=== PATIENT | male | born 1945 | race Caucasian/White ===

== ENCOUNTER 2016-08-21 09:58 | Inpatient (IN) | payer OTHER ==
--- NOTE | 2016-08-21 10:16 | CPEKG ---
Heart Rate: 70 RR Interval: 857 P-R Interval: 184 QRSD Interval: 86 QT Interval: 372 QTC Interval: 402 P Havelock: 58 QRS Havelock: -8 T Wave Havelock: 55 EKG Severity - NORMAL ECG - EKG Impression: SINUS RHYTHM Electronically Signed By: George Sher 21-Aug-2016 15:04:56
[2016-08-21 10:41] LABS: % IMMATURE GRANULYOCYTES 0.4 % (0.0-1.1); ABSOLUTE IMMATURE GRANULOCYTES 0.02 10^3/uL (0.00-0.10); ADD DIFF? NO; ADD MORPH? NO; ADD SCAN? NO; ATYPICAL LYMPHOCYTE FLAG 80 (0-99); FRAGMENT RBC FLAG 0 (0-99); HEMOGLOBIN 16.2 g/dL (13.7-17.5); LEFT SHIFT FLG 10 (0-99); LIPEMIA HEMOLYSIS FLAG 90 (0-99); MEAN CELL HEMOGLOBIN 31.3 pg (27.9-34.1); MEAN CELL HEMOGLOBIN CONCENTR. 33.8 g/dL (32.4-36.7); MEAN CELL VOLUME 92.8 fL (81.5-99.8); MEAN PLATELET VOLUME 10.8 fL (8.7-11.7); PLATELET CLUMPS FLAG 0 (0-99); PLATELET COUNT 162 10^3/uL (150-400); RED BLOOD CELL COUNT 5.17 10^6/uL (4.40-6.38); RED CELL DISTRIBUTION WIDTH 12.6 % (11.5-15.2)
[2016-08-21 11:19] LABS: ANION GAP 10 mEq/L (8-16); CALCIUM 8.9 mg/dL (8.5-10.4); CARBON DIOXIDE 27 mEq/l (22-31); CHLORIDE 101 mEq/L (97-110); CREATININE 1.1 mg/dL (0.7-1.3); GLOMERULAR FILTRATION RATE > 60; GLUCOSE 95 mg/dL (70-100); POTASSIUM 4.3 mEq/L (3.5-5.2); SODIUM 138 mEq/L (134-144)
[2016-08-21 11:30] LABS: TROPONIN I 0.024 ng/mL (0-0.034)
[2016-08-21 11:42] LABS: ALBUMIN 3.6 g/dL (3.5-5.0); BILIRUBIN,TOTAL 0.7 mg/dL (0.1-1.4); BILIRUBIN-CONJUGATED 0.3 mg/dL (0.0-0.5); BILIRUBIN-UNCONJUGATED 0.4 mg/dL (0.0-1.1); TOTAL PROTEIN 6.9 g/dL (6.3-8.2)
--- NOTE | 2016-08-21 11:44 | DX ---
Chest, AP and Lateral August 21, 2016 History: Dyspnea. Weakness. Findings: Heart size is within normal limits. Mild peribronchial wall thickening. Small area of opaci fication is seen at the right lung base. No other evidence for airspace consolidation. Emphysematous configuration to the chest. No evidence for pleural effusion or pneumothorax. Mild degenerative carbajal e is seen in both shoulders. Impression: Mild underlying bronchitis. Small focal area of atelectasis or infiltrate in the right slime ng base.
[2016-08-21] MEDS ORDERED: AZITHROMYCIN 250 MG TAB PO ONE (11:57)
--- NOTE | 2016-08-21 12:08 | EDPHY ---
H & P Stated Complaint: Abd pain, weakness, diarrhea, loss of appetite Time Seen by Provider: 08/21/16 10:12 HPI/ROS: Chief complaint: Diarrhea, weakness History of present illness: This is a 71-year-old male who presents to the emergency department for evaluation of diarrhea and weakness. Patient reports the onset of symptoms over the last day. Symptoms began when he was traveling from [place] to [place] with his son by private vehicle. He reports multiple episodes of diarrhea described as watery, nonbloody, no mucus. He states he is going to the bathroom every 15 minutes. He has had associated weakness. Patient also initially had a fever which has resolved. His son was sick with similar symptoms. He denies other precipitating factors. He denies alleviating factors. He denies other associated signs or symptoms. No actual abdominal pain. No nausea or vomiting. No urinary symptoms. No cold symptoms. Review of systems: A 10 point review of systems was obtained and other than described above was negative - Personal History Current Tetanus/Diphtheria Vaccine: No Current Tetanus Diphtheria and Acellular Pertussis (TDAP): No - Medical/Surgical History Hx Asthma: No Hx Chronic Respiratory Disease: No Hx Diabetes: No Hx Cardiac Disease: No Hx Renal Disease: No Hx Cirrhosis: No Hx Alcoholism: No Hx HIV/AIDS: No Hx Splenectomy or Spleen Trauma: No Other PMH: Glaucoma - Social History Smoking Status: Former smoker - Physical Exam Exam: General Appearance: Alert, nontoxic. Eyes: Pupils equal and round no pallor or injection. ENT, Mouth: Mucous membranes moist. Respiratory: There are no retractions, lungs are clear to auscultation. Cardiovascular: Regular rate and rhythm. Gastrointestinal: Bowel sounds normal. Abdomen soft, nondistended, nontender to palpation. Neurological: Alert and oriented x4. Strength and sensation intact and symmetrical. Skin: Warm and dry, no rashes. Musculoskeletal: Neck is supple non tender. Extremities are symmetrical, full range of motion. Psychiatric: Patient is oriented X 3, there is no agitation. Constitutional: Initial Vital Signs Temperature (C) 36.7 C 08/21/16 10:10 Heart Rate 73 08/21/16 10:10 Respiratory Rate 16 08/21/16 10:10 Blood Pressure 134/73 H 08/21/16 10:10 O2 Sat (%) 83 L 08/21/16 10:10 O2 Delivery Mode Nasal Cannula O2 (L/minute) 2 Allergies/Adverse Reactions: No Known Allergies Allergy (Unverified 08/21/16 10:13) Home Medications: Medication Instructions Recorded Daily Vit Formula + Iron Tab 08/21/16 Fish Oil 08/21/16 NIACIN 08/21/16 Medical Decision Making ED Course/Re-evaluation: Patient discussed with my secondary supervising physician Dr. George Sher. Patient presents to the emergency department for diarrhea and weakness. On presentation he is nontoxic. Vital signs are concerning that he had a pulse oximetry 83% on good waveform. Physical exam is unremarkable including a benign abdominal exam. Baseline blood studies are unremarkable. EKG is unremarkable. Chest x-ray is concerning for bronchitis and developing pneumonia. Given concern for pneumonia on chest x-ray and pulse oximetry he will be admitted to the hospital for further evaluation and care. He is started on Rocephin and azithromycin. Stool studies have been ordered for the diarrhea and are pending at time of dictation. The plan has been discussed with the patient and his family and they voiced understanding and agreement with it. Differential Diagnosis: Included but not limited to gastroenteritis, colitis, biliary tract disease, panic high electrolyte disturbances - Data Points Laboratory Results: Laboratory Results 08/21/16 10:15 08/21/16 10:15 08/21/16 08/21/16 08/21/16 11:45 10:25 10:15 WBC 5.47 10^3/uL (3.80-9.50) RBC 5.17 10^6/uL (4.40-6.38) Hgb 16.2 g/dL (13.7-17.5) Hct 48.0 % (40.0-51.0) MCV 92.8 fL (81.5-99.8) MCH 31.3 pg (27.9-34.1) MCHC 33.8 g/dL (32.4-36.7) RDW 12.6 % (11.5-15.2) Plt Count 162 10^3/uL (150-400) MPV 10.8 fL (8.7-11.7) Neut % (Auto) 64.1 % (39.3-74.2) Lymph % (Auto) 19.0 % (15.0-45.0) Graves % (Auto) 15.9 H % (4.5-13.0) Eos % (Auto) 0.2 L % (0.6-7.6) Baso % (Auto) 0.4 % (0.3-1.7) Nucleat RBC Rel Count 0.0 % (0.0-0.2) Absolute Neuts (auto) 3.51 10^3/uL (1.70-6.50) Absolute Lymphs (auto) 1.04 10^3/uL (1.00-3.00) Absolute Monos (auto) 0.87 H 10^3/uL (0.30-0.80) Absolute Eos (auto) 0.01 L 10^3/uL (0.03-0.40) Absolute Basos (auto) 0.02 10^3/uL (0.02-0.10) Absolute Nucleated RBC 0.00 10^3/uL (0-0.01) Immature Gran % 0.4 % (0.0-1.1) Immature Gran # 0.02 10^3/uL (0.00-0.10) VBG Lactic Acid 1.0 mmol/L (0.7-2.1) Sodium 138 mEq/L (134-144) Potassium 4.3 mEq/L (3.5-5.2) Chloride 101 mEq/L (97-110) Carbon Dioxide 27 mEq/l (22-31) Anion Gap 10 mEq/L (8-16) BUN 21 mg/dL (7-23) Creatinine 1.1 mg/dL (0.7-1.3) Estimated GFR > 60 Glucose 95 mg/dL (70-100) Calcium 8.9 mg/dL (8.5-10.4) Total Bilirubin 0.7 mg/dL (0.1-1.4) Conjugated Bilirubin 0.3 mg/dL (0.0-0.5) Unconjugated Bilirubin 0.4 mg/dL (0.0-1.1) AST 59 IU/L (17-59) ALT 45 IU/L (21-72) Alkaline Phosphatase 76 IU/L (38-126) Troponin I 0.024 ng/mL (0-0.034) Total Protein 6.9 g/dL (6.3-8.2) Albumin 3.6 g/dL (3.5-5.0) Lipase 261.0 IU/L (23-300) Influenza Typ A,B (DFA) Pending Departure - Departure Disposition: [facility] Inpatient Acute Clinical Impression: Diarrhea, Pneumonia Condition: Good
[2016-08-21 13:49] LABS: OCCULT BLOOD FECES NEGATIVE (NEGATIVE)
[2016-08-21] MEDS ORDERED: ONDANSETRON 4 MG/2 ML VIAL IVP PRN (14:44)
[2016-08-21] MEDS ORDERED: ALBUTEROL 3 ML DEYVIAL IH PRN (14:44)
[2016-08-21] MEDS ORDERED: TEMAZEPAM 15 MG CAP PO PRN (14:44)
[2016-08-21] MEDS ORDERED: ONDANSETRON DISINTEGRATING 4 MG TAB PO PRN (14:44)
[2016-08-21] MEDS ORDERED: ACETAMINOPHEN 325 MG TAB PO PRN (14:44)
[2016-08-21] MEDS ORDERED: NS 1,000 ML IV SCH (14:45)
--- NOTE | 2016-08-21 16:01 | GHP ---
[f rep st] HISTORY AND PHYSICAL DATE OF ADMISSION: 08/21/2016 CHIEF COMPLAINT: Persistent diarrhea as well as weakness. HISTORY OF PRESENT ILLNESS: Patient is a 71-year-old male without any significant past medical history, except for macular degeneration and glaucoma who presented to the emergency room with complaints of diarrhea and weakness. His symptoms began approximately a week ago. He is moving here from the [place] area to live with his son. His son flew out to [place] this past Monday and describes feeling like he had the flu but improved over 48 hours. He packed his father's things up and they were in the process of driving a truck to [place]. His father felt poorly [address] They stopped in [place]. His father felt like he was going to pass out. The son proceeded to call 911. The paramedics arrived and felt that the patient did not need to be hospitalized at that time. Per the son, the patient was becoming more forgetful during his conversations but the big issue was persistent diarrhea. They continued to travel to [place]. The patient describes having a fever and is persistently cold. He had 7 bouts of diarrhea since last evening and he does not have much of an appetite. He has not been around anyone ill except his son initially. The patient and his son have been eating pretty much the same foods and his son has not gotten any diarrhea from the restaurants they ate at. He has not been on any recent antibiotics. He has had no recent travel. He tried drinking Gatorade to see if this would help his symptoms. It did not. He denies any chest pain, no shortness of breath. He usually has normal bowel movements. He denies any urinary frequency, or urgency. He denies any weight change. Overall he states that he has been feeling poorly. He also expresses that he feels he is a burden to his son and his family and became tearful throughout our conversation. PAST MEDICAL HISTORY: 1. Glaucoma. 2. Macular degeneration. 3. High cholesterol. Had been on niacin but ran out of his prescription approximately a week ago. PAST SURGICAL HISTORY: 1. Cataract surgery. 2. Elbow surgery. 3. Appendectomy. 4. Back surgery. SOCIAL HISTORY: He is . He does not drink alcohol. He quit smoking in 2010. Prior to this he smoked for 46 years and smoked a pack and a half a day. 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 He is in the process of moving in to live with his son and his . FAMILY HISTORY: His father had congestive heart failure and in his 70s. His mom from complications of leukemia and she was in her 70s. ALLERGIES: No known allergies. HOME MEDICATIONS: Xalatan 0.005% 1 drop each eye q.h.s., Betagan 0.5% 1 drop each eye daily, aspirin 325 mg daily, fish oil 1000 mg p.o. b.i.d., multivitamins 1 tab daily, and niacin p.o. q.h.s. REVIEW OF SYSTEMS: A 10-point review of system was performed and was negative other than pertinent positives in the HPI and past medical history. PHYSICAL EXAM: GENERAL: Patient is a 71-year-old male, who appears to be in good health. VITAL SIGNS: Blood pressure is 117/66, heart rate is 76, respiratory rate is 18, O2 sats on 2 L are 94%. Temperature is 37.9 Celsius. EYES: Pupils are equal and reactive. EOMs are intact. He is wearing glasses. No conjunctival injection noted. ENT: Normal ears. Hearing is intact. ORAL AIRWAY: Moist. NECK: Trachea is midline. CARDIOVASCULAR: Regular rate and rhythm. No murmurs, rubs, or gallops noted. 2+ pedal pulses. CHEST/LUNGS : He has normal respiratory effort. He has scattered expiratory wheezes throughout both lungs. ABDOMEN: Soft, nontender. He has bowel sounds in all 4 quadrants. No guarding noted. SKIN: No rashes, ulcer. Warm, dry, intact. MUSCULOSKELETAL: Equal in upper extremity strength. PSYCHIATRIC: He is alert and oriented. He is very tearful throughout my whole interview. He appears to have normal judgment, normal insight, and normal memory. DATA REVIEWED: Laboratory data shows a white blood cell count of 5.47, hemoglobin 16.2, hematocrit of 48, platelet count of 162. Chemistry: Sodium is 138, potassium 4.3, chloride of 101, BUN 21, creatinine of 1.1. Glucose of 95, calcium of 8.9. Bilirubin of 0.7, AST 59, ALT 45, alkaline phos 76. Troponin is 0.024. Stool studies are pending. C diff is pending. Influenza is negative. Chest x-ray was reviewed and evaluated by myself. It shows a small focal area of atelectasis or infiltrate in the right lung base. It also notes that he has emphysematous configuration to the chest. He has mild underlying bronchitis. 12-lead ECG shows sinus rhythm which I interpreted and evaluated. ASSESSMENT/PLAN: 1. Diarrhea without nausea and vomiting. I suspect this is likely a viral gastroenteritis. Will evaluate the stool studies that are pending. Will hydrate him with normal saline. If all of his stool studies are negative can consider treating him with Imodium. 2. Concern for pneumonia. Chest x-ray shows possible beginnings of pneumonia. At this time, will hold off antibiotic therapy due to diarrhea. Blood cultures were sent in the emergency room. He did receive a dose of ceftriaxone and azithromycin. He doesn't have an elevated white blood cell count. Will follow. 3. Hypoxemia. His O2 saturations on room air in the emergency room were noted to be 83%. He is in the process of moving to a higher altitude. In addition, he has a long history of smoking. Will order DuoNeb. 4. Glaucoma. Resumed eyedrops. 5. Generalized weakness. Will ask Physical therapy and Occupational therapy to further evaluate. 6. Increased stress with moving here. Will ask case management to get involved and get him and his family resources. 7. Deep vein thrombosis prophylaxis. Moderate risk. Will initiate low molecular weight heparin. 8. Code status: Full. 9. Length of stay: He will likely require less than a 2 midnight stay which will make him observation status. This can be further evaluated if needed. /[id number]/MODL MTDD
[2016-08-21 16:23] LABS: O/P CONCENTRATION NONE SEEN (NONE SEEN); O/P DESCRIPTION LIQUID BROWN STOOL; O/P DIRECT NONE SEEN (NONE SEEN)
[2016-08-21] MEDS: IPRATROPIUM/ALBUTEROL 3 ML DEYVIAL IH SCH ×2 (17:29→21:00)
[2016-08-21] MEDS: LATANOPROST 0.005% 2.5 ML OPHT DROPS EACHEYE SCH (20:26)
[2016-08-22 05:27] LABS: % IMMATURE GRANULYOCYTES 0.4 % (0.0-1.1); ABSOLUTE IMMATURE GRANULOCYTES 0.02 10^3/uL (0.00-0.10); ADD DIFF? NO; ADD MORPH? NO; ADD SCAN? NO; ATYPICAL LYMPHOCYTE FLAG 80 (0-99); FRAGMENT RBC FLAG 0 (0-99); HEMOGLOBIN 13.4 g/dL (13.7-17.5); LEFT SHIFT FLG 0 (0-99); LIPEMIA HEMOLYSIS FLAG 80 (0-99); MEAN CELL HEMOGLOBIN 30.7 pg (27.9-34.1); MEAN CELL HEMOGLOBIN CONCENTR. 33.5 g/dL (32.4-36.7); MEAN CELL VOLUME 91.7 fL (81.5-99.8); MEAN PLATELET VOLUME 10.2 fL (8.7-11.7); PLATELET CLUMPS FLAG 0 (0-99); PLATELET COUNT 136 10^3/uL (150-400); RED BLOOD CELL COUNT 4.36 10^6/uL (4.40-6.38); RED CELL DISTRIBUTION WIDTH 12.8 % (11.5-15.2)
[2016-08-22 05:45] LABS: ALANINE AMINOTRANSFERASE 39 IU/L (21-72); ALBUMIN 2.9 g/dL (3.5-5.0); ALKALINE PHOSPHATASE 60 IU/L (38-126); ANION GAP 5 mEq/L (8-16); ASPARTATE AMINOTRANSFERASE 39 IU/L (17-59); BILIRUBIN,TOTAL 0.5 mg/dL (0.1-1.4); CALCIUM 7.7 mg/dL (8.5-10.4); CARBON DIOXIDE 24 mEq/l (22-31); CHLORIDE 108 mEq/L (97-110); CREATININE 0.8 mg/dL (0.7-1.3); GLOMERULAR FILTRATION RATE > 60; GLUCOSE 85 mg/dL (70-100); MAGNESIUM 1.9 mg/dL (1.6-2.3); POTASSIUM 3.7 mEq/L (3.5-5.2); SODIUM 137 mEq/L (134-144); TOTAL PROTEIN 5.6 g/dL (6.3-8.2)
[2016-08-22] MEDS: IPRATROPIUM/ALBUTEROL 3 ML DEYVIAL IH SCH ×4 (06:20→21:59)
[2016-08-22] MEDS: LEVOBUNOLOL 0.5% 5 ML OPHT.BTL EACHEYE SCH (07:40)
[2016-08-22] MEDS ORDERED: LOPERAMIDE HCL 2 MG CAP PO PRN (08:38)
[2016-08-22] MEDS ORDERED: ENOXAPARIN 40 MG/0.4 ML SYR SC SCH (09:00)
[2016-08-22] MEDS ORDERED: TIOTROPIUM INHALER 18 MCG/DOSE 5 DOSE/MDI IH SCH (09:30)
[2016-08-22] MEDS: predniSONE 20 MG TAB PO SCH (10:38)
[2016-08-22] MEDS ORDERED: IOPAMIDOL (ISOVUE 370) 100 ML BTL IV ONE (13:37)
--- NOTE | 2016-08-22 14:34 | CT ---
Contrast Enhanced CT Scan of the Chest CT (CT Angiography) Clinical History: 71-year-old male inpatient who smoked a pack and a half of cigarettes each day for 46 years, although quit smoking in 2010. The patient has hypercholesterolemia and weakness, and was n oted to have a possible infiltrate at the right lung base on recent radiography; he also has hypoxia. Technique: Following the uncomplicated intravenous administration of 90 mL of [id number], a multidetector helical CT scan was obtained from the base of the neck inferiorly to the upper abdomen during peak arterial phase, with images reformatted in soft tissue, lung, liver, and bone windows, a nd are reformatted at 1.25 mm and 4/3 mm increments. Multiplanar reconstructions were reviewed on the workstation. The DFOV is 36.0 cm. Dose reduction techniques were utilized. Comparison Study: Chest radiography, dated August 21, 2016, at 10:41 a.m. Findings: CT Angiography: The main pulmonary artery, the main right and left pulmonary arteries, and the first and second order pulmonary segments are contrast-opacified, with no filling defect to suggest acute o r chronic thromboemboli. There is no interventricular septum deviation, and there is a small amount o f reflux of contrast into the intrahepatic IVC. The ascending thoracic aorta is mildly ectatic, measu ring 3.7 x 3.8 cm, and the descending thoracic aorta, as well as the visualized upper abdominal aorta are normal in caliber, with no aneurysm or dissection. There is a normal anatomic arrangement of the great vessels off the aortic arch. There is atherosclerotic calcification of the left anterior desce nding coronary artery. The pericardium is normal. The heart size is normal, and there is no pericardi al effusion. Contrast-Enhanced CT Scan of the Chest: The lungs are hyperexpanded, with moderate centrilobular emph ysema. There is some mild subpleural bullous change in the apices, right greater than left. There is some peripheral paraseptal thickening, consistent with interstitial lung disease, and there is diffus e peribronchial thickening. In the right lower lobe abutting the right hemidiaphragm, there is a spic ulated 3.6 x 3.2 x 2.7 cm highly suspicious mass with some surrounding subsegmental atelectasis. This is most worrisome for a primary bronchogenic carcinoma. Theoretically, this could represent some devi g cicatrization with scarring from a prior infiltrate, although this is considered much less likely. A PET/CT scan is suggested for additional assessment. There is some mild subsegmental atelectasis at the posterior right costophrenic angle. There is no pleural effusion, pneumothorax, or pneumomediasti num. There is a 7 x 13 mm left paratracheal lymph node on series 2 image 47, a 10 x 11 mm AP window l ymph node on series 2 image 77, a lower right paratracheal lymph node measuring 8 x 12 mm on series 2 image 83, a 17 x 25 mm right hilar lymph node on series 2 image 109, and an 8 x 14 mm right perihila r lymph node on series 2 image 133. A small hiatal hernia is present. The osseous structures are age- appropriate, with no lytic or blastic lesion observed. The visualized upper abdomen is notable for an incompletely-imaged exophytic cyst off the upper pole of the left kidney with a Hounsfield unit zaina urement of 4. In the There is no pleural effusion, pneumothorax, or pneumomediastinum. There is no pa thologically-enlarged adenopathy. The visualized portions of the thyroid gland are normal. The osseou s structures are age-appropriate. Impression: 1. There is no CT evidence of pulmonary artery thromboembolic. 2. There is a 3.6 x 3.2 x 2.7 cm spiculated mass in the right lower lobe, highly suspicious for a [facility] bronchogenic carcinoma (this resides adjacent to some subsegmental atelectasis, which could be p otentially early postobstructive). There is also some mild mediastinal and right hilar lymphadenopath y. A PET/CT scan is recommended for further assessment. 3. Moderate centrilobular emphysema with some interstitial lung disease and diffuse bronchitis. 4. Small hiatal hernia. 5. Mild LAD coronary artery atherosclerotic calcification.
[2016-08-22] MEDS: AMOXICILLIN/CLAVULANATE POT 875/125 MG TAB PO SCH ×2 (15:37→20:24)
--- NOTE | 2016-08-22 17:15 | HOSPPROG ---
Hospitalist Progress Note Assessment/Plan: Assessment: 71 yo M p/w acute COPD exacerbation c/b post-obstructive pneumonia Plan: 1. COPD exacerbation. Acute, new problem, further w/u indicated. Evidenced by diffuse exp wheezes w/ hypoxia (83% room air) + lengthy smoking hx and emphysematous changes on chest imaging - d/w Maureen Molina, Hospitalist provider, reports that primary sx pulmonary on presentation but also concern for malignancy - clinically unresolved, short of breath w/ activity - cont scheduled nebs, cont PRN albuterol - start pred 60mg D1/5 - start Abx D1/5 - get CTA to r/o PE as precipitating cause 2. Post-obstructive pneumonia. Acute, new problem, further w/u indicated. Evidenced by RLL infiltrate on CXR (personally interpreted) + pulm sx and recent malaise - start augmentin D1/5 - monitor CBC - get CT to r/o RLL malignancy and eval for LAD Diet. Regular PPx. High risk, lovenox 40 Code. Full Dispo. ADD uncertain, upgrade to inpatient admission status re: anticipated LOS > 48hrs re: clinically unresolved acute COPD exacerbation w/ post-obstructive PNA and further eval for pulm malignancy, will likely require immediate bronch vs. IR biopsy. Subjective: patient reports weakness and significant dyspnea on exertion Objective: Vital Signs Temp Pulse Resp BP Pulse Ox 36.3 C 68 18 128/67 H 95 08/22/16 15:57 08/22/16 16:20 08/22/16 16:20 08/22/16 15:57 08/22/16 16:20 Microbiology 08/21/16 13:25 Gastrointestinal Tract Panel (PCR) - Final Stool No Organisms Detected Fecal Leukocyte Stain - Final Laboratory Results 08/22/16 05:00 08/22/16 05:00 08/21/16 08/22/16 08/23/16 05:59 05:59 05:59 Intake Total 1000 320 Balance 1000 320 - Physical Exam Constitutional: no apparent distress, not in pain, chronically ill appearing, No uncomfortable Cardiovascular: regular rate and rhythym, no murmur, rub, or gallop, No irregularly irregular, No edema Respiratory: expiratory wheeze, bronchial breath sounds, rhonchi (on inspiration R base), No reduced air movement Gastrointestinal: normoactive bowel sounds, soft, non-tender abdomen, no palpable masses Neurologic: AAOx3, sensation intact bilaterally, No weakness (motor 5/5 bilat LE ) Psychiatric: interacting appropriately, not encephalopathic, thought process linear, anxious, No agitated ICD10 Worksheet Patient Problems: Problems Problem Status Diagnosed Diarrhea Acute Pneumonia Acute
[2016-08-22] MEDS: LATANOPROST 0.005% 2.5 ML OPHT DROPS EACHEYE SCH (18:08)
[2016-08-23 06:08] LABS: % IMMATURE GRANULYOCYTES 0.3 % (0.0-1.1); ABSOLUTE IMMATURE GRANULOCYTES 0.01 10^3/uL (0.00-0.10); ADD DIFF? NO; ADD MORPH? NO; ADD SCAN? YES; FRAGMENT RBC FLAG 0 (0-99); HEMATOCRIT 40.8 % (40.0-51.0); HEMOGLOBIN 14.1 g/dL (13.7-17.5); LEFT SHIFT FLG 0 (0-99); LIPEMIA HEMOLYSIS FLAG 90 (0-99); MEAN CELL HEMOGLOBIN 31.3 pg (27.9-34.1); MEAN CELL HEMOGLOBIN CONCENTR. 34.6 g/dL (32.4-36.7); MEAN CELL VOLUME 90.7 fL (81.5-99.8); MEAN PLATELET VOLUME 10.3 fL (8.7-11.7); PLATELET CLUMPS FLAG 0 (0-99); PLATELET COUNT 134 10^3/uL (150-400); RED CELL DISTRIBUTION WIDTH 12.5 % (11.5-15.2)
[2016-08-23 06:09] LABS: ATYPICAL LYMPHOCYTE FLAG 190 (0-99); INR 1.05 (0.83-1.16); PROTIME(PATIENT) 13.6 SEC (12.0-15.0)
[2016-08-23 06:10] LABS: ALANINE AMINOTRANSFERASE 46 IU/L (21-72); ALBUMIN 2.9 g/dL (3.5-5.0); ALKALINE PHOSPHATASE 67 IU/L (38-126); ANION GAP 8 mEq/L (8-16); ASPARTATE AMINOTRANSFERASE 37 IU/L (17-59); BILIRUBIN,TOTAL 0.6 mg/dL (0.1-1.4); CALCIUM 8.4 mg/dL (8.5-10.4); CARBON DIOXIDE 27 mEq/l (22-31); CHLORIDE 106 mEq/L (97-110); CREATININE 0.7 mg/dL (0.7-1.3); GLOMERULAR FILTRATION RATE > 60; GLUCOSE 94 mg/dL (70-100); POTASSIUM 3.9 mEq/L (3.5-5.2); SODIUM 141 mEq/L (134-144); TOTAL PROTEIN 5.9 g/dL (6.3-8.2)
[2016-08-23] MEDS: IPRATROPIUM/ALBUTEROL 3 ML DEYVIAL IH SCH ×2 (06:19→09:52)
[2016-08-23 06:55] LABS: SCAN NEGATIVE
[2016-08-23] MEDS: LEVOBUNOLOL 0.5% 5 ML OPHT.BTL EACHEYE SCH (08:37)
[2016-08-23] MEDS: AMOXICILLIN/CLAVULANATE POT 875/125 MG TAB PO SCH (08:39)
[2016-08-23] MEDS: predniSONE 20 MG TAB PO SCH (08:39)
[2016-08-23] MEDS ORDERED: MIDAZOLAM 2 MG/2 ML VIAL ONE (10:44)
[2016-08-23] MEDS ORDERED: LIDOCAINE 1% 30 ML SDV ONE (10:44)
[2016-08-23] MEDS ORDERED: fentaNYL 100 MCG/2 ML INJ ONE (10:44)
[2016-08-23] MEDS ORDERED: LIDOCAINE 2% JELLY 5 ML TUBE ONE (10:44)
--- NOTE | 2016-08-23 10:56 | GCON ---
[f rep st] CONSULTATION PULMONARY CONSULTATION DATE OF CONSULTATION: 08/23/2016 REFERRING PHYSICIAN: Mejia Pruitt MD REASON FOR REFERRAL: Evaluation and management of a lung nodule. HISTORY OF PRESENT ILLNESS: The patient is a 71-year-old gentleman who is in the process of moving from [place] to [place] to be closer to his son. His son apparently had a flu-like illness about a week ago that improved quickly. He flew to [place] and was driving back with the patient, when the patient reported that he was feeling poorly, with a sensation of lightheadedness like he might pass out. The paramedics were called but the patient was not hospitalized. The patient had felt as though he may have a fever, but his most prominent symptom was diarrhea along with poor appetite. His diarrhea persisted until yesterday. He has about a year history of shortness of breath which has not changed acutely. He has a chronic nonproductive cough that has also not changed. He denies any chest pain. He has not had any recent weight change. PAST MEDICAL HISTORY: 1. Glaucoma. 2. Macular degeneration. 3. High cholesterol. MEDICATIONS: At the time of admission include eye drops, aspirin, fish oil, and niacin. ALLERGIES: None. SOCIAL HISTORY: The patient is . He does not drink alcohol. He has about a [id number] history of smoking which he stopped in 2010. 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 FAMILY HISTORY: Unremarkable. REVIEW OF SYSTEMS: A 10-point review of systems is performed and negative other than in the HPI and Past Medical History. PHYSICAL EXAMINATION: GENERAL: The patient is awake, alert, in no acute distress. VITAL SIGNS: His blood pressure is 135/76 with a pulse of 55. He is afebrile. Oxygen saturations are 95% on 2 L. HEENT: Normocephalic, atraumatic. No icterus. NECK: No JVD. Trachea is midline. CHEST: Scattered wheezes. CARDIAC : Regular rate and rhythm without murmur. ABDOMEN: Soft, nontender. Bowel sounds are present. EXTREMITIES: No clubbing, cyanosis, or edema. LABORATORY: His white blood count is 3.1, down from 5.5 at the time of admission. His chemistry group is normal. A chest x-ray shows some mild bronchitis with a possible infiltrate in the right base. A CT scan of the chest shows a 3.6 cm spiculated nodule in the right lower lobe. There is some borderline mediastinal adenopathy, and moderate central lobular emphysema with bronchial thickening. ASSESSMENT: 1. Lung mass. The patient has a 3.6 cm lung mass in the right lower lobe, with some mild adenopathy, as well as significant emphysema and a significant smoking history. The mass is suspicious for malignancy. Acute scar is possible but less likely. It is also possible that this could represent an area of pneumonia, and the patient does have some symptoms of acute illness although the symptoms seem to be more due to a GI illness than pneumonia. I discussed the diagnostic and treatment options at this point, which include a bronchoscopy or a transthoracic needle aspiration. This could be done now or potentially could be done in a month or so to see whether or not this is a pneumonia that resolves. Given the fairly high suspicion for malignancy, it would seem more prudent to proceed at this time with a diagnostic procedure. There does appear to be a subsegmental airway from the anterior segment of the right lower lobe that goes directly to this mass, so although it is somewhat distal it may be accessible bronchoscopically. This would have a lower risk than the transthoracic needle aspiration. I described the risks of the procedure , which I think are fairly minimal but do include bleeding and pneumothorax. The patient is amenable to proceeding. If this is malignancy, the mild adenopathy is somewhat concerning for possible metastases. 2. Emphysema. The patient has some dyspnea and also has some wheezing. He might improve with inhaler therapy. RECOMMENDATIONS: 1. Bronchoscopy. I will attempt to do this today. 2. Continue albuterol. The patient has been started on prednisone and that may help with his bronchial symptoms. He will probably benefit from being discharged on a bronchodilator and perhaps an inhaled steroid. 3. Check pulmonary function tests as an outpatient. 4. The patient is scheduled for a PET scan tomorrow, I think it is probably reasonable to proceed with that. /[id number]/MODL MTDD
--- NOTE | 2016-08-23 12:22 | GPN ---
[f rep st] PROCEDURE NOTE DATE OF PROCEDURE: 08/23/2016 PROCEDURE: Flexible fiberoptic bronchoscopy. REASON FOR PROCEDURE: Lung mass. PROCEDURE NOTE: The risks and benefits of the procedure were explained to the patient, who agreed to proceed. The entire procedure was performed in the endoscopy suite with the patient under blood pre ssure, EKG, and oximetry monitoring. After a time-out, the patient's oropharynx was anesthetized, an d topical anesthetic was applied to the mouth. Attention was paid to the patient's right upper incis or, which was loose. The bronchoscope was advanced through the bite block into the vocal cords, whic h moved normally. 1% lidocaine was used topically on the airways. The bronchoscope was advanced thr ough the vocal cords into the main trachea. I proceeded directly to the right lower lobe, where I ap plied more lidocaine. I then examined all airways bilaterally. There was diffuse hyperemia of the b ronchial mucosa bilaterally, but minimal friability. There were no endobronchial lesions and the samantha jamari was normal. I then returned to the right lower lobe, where I took washings from the anterior se gment. A cytology brush was then passed under fluoroscopic guidance into the more lateral subsegment of the anterior segment of the right lower lobe. I then took multiple biopsies under direct fluoros copic guidance of the same airway. There were no complications apparent at the end of the procedure. The patient tolerated the procedure well with good saturations throughout. He received 1.5 mg of V ersed and 150 mcg of fentanyl intravenously for analgesia and sedation. SPECIMENS: Will be sent for culture, cytology, and histology. ESTIMATED BLOOD LOSS: Less than 10 cc. /[id number]/MODL
--- NOTE | 2016-08-23 12:43 | DX ---
Intraoperative fluoroscopy History: Bronchoscopy, mass right lung base Dose = 10.53 mGy Findings: A single spot film demonstrates a bronchoscope overlying the medial right lower lung base. A mass is present at the right base. Impression: No hemorrhage in the right lung base.
[2016-08-23 13:07] VITALS: RESP 20
--- NOTE | 2016-08-23 14:13 | PDDCSUM ---
[id number] DATE OF ADMISSION: 08/21/2016 DATE OF DISCHARGE: 08/23/2016 DISCHARGE DIAGNOSES: 1. Acute COPD exacerbation 2. Possible postobstructive pneumonia 3. 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 Acute diarrhea CONSULTATIONS: Pulmonary PROCEDURES / IMAGING: Bronchoscopy on 08/23/[address] Black CHIEF COMPLAINT: Acute weakness and diarrhea SUBJECTIVE: Patient continues to experience some weakness diarrhea has improved PHYSICAL EXAM ON DISCHARGE: Systolic blood pressure is 120, heart rate 70, satting well on 2 L nasal cannula , alert awake oriented x3 LABS ON DISCHARGE: White blood cell count 3000, hemoglobin 14.1, platelets a [id number], creatinine 0.7 , potassium 3.9, liver panel unremarkable HOSPITAL COURSE BY PROBLEM: 1. Acute COPD exacerbation. Evidenced by diffuse expiratory wheezes with hypoxia, notably 83% on room air, as well as symptomatic shortness of breath and a lengthy smoking history with emphysematous changes on his chest imaging. The likely precipitant is either possible postobstructive pneumonia versus URI versus irritation from underlying lung cancer. Patient required inpatient hospitalization for clinically on results COPD exacerbation which was initially treated with DuoNeb therapy. He was initiated on prednisone and he will receive a total 5 day burst. Is also initiated on antibiotics and also will receive a [address] angiogram was performed which ruled out pulmonary embolism. He will be discharged home on as needed albuterol inhaler as well as Spiriva. He will follow up with Dr. Chad Black within 1-2 weeks to undergo outpatient pulmonary function tests and reassess his oxygen needs. We also discussed long-term inhaler management. 2. Possible postobstructive pneumonia. Evidenced by right lower lobe infiltrate on chest x-ray distal to the suspected malignancy. The patient also had pulmonary symptoms, recent malaise, weakness. He was initiated on Augmentin and will receive a total of 5 days of antibiotic therapy. 3. Suspected bronchogenic carcinoma the right lower lobe. Patient's chest CT highly indicative of malignancy and he underwent bronchoscopy by Dr. Chad Black with biopsies obtained. The patient has a scheduled follow-up appointment at the [facility] to discuss his biopsy results as well as receive full cancer staging. The patient his son were extensively counseled regarding this new diagnosis and they will greatly benefit from the [facility] career center director. 4. Acute diarrhea. Patient presented with acute diarrhea of unclear etiology. His stool panel was completely negative and his influenza DFA was negative as well. Is possible that his diarrhea may be associated with his underlying acute illness or possibly URI. It has resolved at time of discharge. DISCHARGE MEDICATIONS: Please see official discharge medication reconciliation sheet in chart , prednisone 60 mg daily for the next 3 days, Augmentin 875 mg twice a day for the next 3 days, Spiriva once daily, albuterol inhaler as needed. DISCHARGE INSTRUCTIONS: Patient should follow up at the [facility] this Monday as scheduled, he should also follow up with Dr. Chad Black within 1-2 weeks, he should also establish care at the [facility] in [place] so that he has a primary care provider. TIME SPENT: Greater than 30 minutes were spent on direct patient care, as well as discharge planning and preparation.
--- NOTE | 2016-08-23 14:14 | PDIAF ---
- Diagnosis Diagnosis: Acute COPD exacerbation, possible pneumonia, likely bronchogenic carcinoma Code Status: Full Code - Medication Management Discharge Medications: Medications to Continue on Transfer Aspirin [Aspirin 325 mg (*)] 325 mg PO HS 08/21/16 [Last Taken 08/14/16] Latanoprost 0.005% [Xalatan 0.005% (*)] 1 drops EACHEYE HS 08/21/16 [Last Taken 08/20/16] Levobunolol 0.5% [BETAGAN 0.5% (*)] 1 drops EACHEYE DAILY 08/21/16 [Last Taken 08/21/16] Multivitamins [Multivitamin (*)] 1 each PO DAILY 08/21/16 [Last Taken 08/21/16] Niacin [Niacin 500 mg (*)] 500 mg PO HS 08/21/16 [Last Taken 08/15/16] [place]-3 Fatty Acids [Fish Oil 1000 mg (*)] 1,000 mg PO BID 08/21/16 [Last Taken 08/21/16] Acetaminophen [Tylenol 325mg (*)] 650 mg PO Q4HRS PRN #0 tab 08/23/16 [Last Taken Unknown] Albuterol [Proventil Inhaler HFA (*)] 2 puffs IH Q4 PRN #1 mdi 08/23/16 [Last Taken Unknown] Amoxicillin/Clavulanate Pot [Augmentin 875 MG TAB (*)] 875 mg PO BID #7 tab [Last Taken Unknown] Loperamide HCl [Imodium 2 mg (*)] 2 mg PO QID PRN #0 cap 08/23/16 [Last Taken Unknown] Tiotropium Inhaler [Spiriva Handihaler] 90 mcg IH DAILY #1 mdi 08/23/16 [Last Taken Unknown] predniSONE 60 mg PO DAILY #9 tablet 08/23/16 [Last Taken Unknown] Discharge Medications: Refer to the Discharge Home Medication list for PRN reason. PICC Care - Routine: N/A - Orders Services needed: Home Care, Registered Nurse Home Care Face to Face: I certify that this patient was under my care and that I had the required [id number] encounter meeting the encounter requirements on the discharge day. My findings support the fact that the patient is homebound as defined in CMS Chapter 7 Medicare Benefits Manual 30.1.1, The condition of the patient is such that there exists a normal inability to leave home and consequently, leaving home would require a considerable and taxing effort. Oxygen: 2L [place] Diet Recommendation: no restrictions on diet Villegas: Not applicable - Follow Up Care Current Providers and Referrals: Lisa Victoria MD [Medical Doctor] - 08/26/16 4:00 pm Chad Black MD [Medical Doctor] - follow up in 2 weeks OUT OF STATE,. [Primary Care Provider] - As per Instructions
[2016-08-23 16:11] VITALS: BP 132/70; PULSE 56; TEMP 98; O2SAT 87
[2016-08-24 13:43] LABS: O/P TRICHROME NONE SEEN (NONE SEEN)
== END 2016-08-23 16:35 | disposition home health service (06) | DRG 190 ==
LOC: INTOOBSV 12:03 → F3E 13:50 → OBSVTOIN 08-22 17:09
PROVIDERS: ADMIT Internal Medicine; ATTEND Internal Medicine
PROC: 0BB68ZX Excision of Right Lower Lobe Bronchus, Via Natural or Artificial Opening Endoscopic, Diagnostic (ICD-10-PCS; principal; 2016-08-23 11:14)
DX: J44.1 Chronic obstructive pulmonary disease with (acute) exacerbation (principal); J18.8 Other pneumonia, unspecified organism; C34.31 Malignant neoplasm of lower lobe, right bronchus or lung; R19.7 Diarrhea, unspecified; Z87.891 Personal history of nicotine dependence; E78.00 Pure hypercholesterolemia, unspecified; H40.9 Unspecified glaucoma
CPT/HCPCS: 96365; 97161-GP; 97166-GO; 97535-GO; G0378; G8978-GP-CI; G8979-GP-CI; G8980-GP-CI; G8987-GO-CI; G8988-GO-CI; G8989-GO-CI; J0171; J0696; J1650; J2250; J3010; Q9967

== ENCOUNTER → 2016-09-13 | Outpatient (CLI) | payer OTHER ==
[~2016-09-13] MED LIST: NA BICARBONATE 50 MEQ/50 ML VIAL ONE
== END ==
LOC: FIMAGING 11:53
PROVIDERS: ATTEND Internal Medicine Hematology & Oncology
PROC: 07B13ZX Excision of Right Neck Lymphatic, Percutaneous Approach, Diagnostic (ICD-10-PCS; principal; 2016-09-13)
DX: C08.9 Malignant neoplasm of major salivary gland, unspecified (principal)

== ENCOUNTER → 2016-09-19 | Outpatient (CLI) | payer OTHER | LOC: BHFA 09:30 | PROVIDERS: ATTEND Internal Medicine Cardiovascular Disease | DX: J44.9 Chronic obstructive pulmonary disease, unspecified (principal) ==

== ENCOUNTER 2016-10-03 08:07 | Inpatient (IN) | payer OTHER ==
[2016-09-29 12:36] LABS: % IMMATURE GRANULYOCYTES 0.7 % (0.0-1.1); ABSOLUTE IMMATURE GRANULOCYTES 0.08 10^3/uL (0.00-0.10); ADD DIFF? NO; ADD MORPH? NO; ADD SCAN? NO; ATYPICAL LYMPHOCYTE FLAG 60 (0-99); FRAGMENT RBC FLAG 0 (0-99); HEMATOCRIT 45.3 % (40.0-51.0); HEMOGLOBIN 15.5 g/dL (13.7-17.5); LEFT SHIFT FLG 0 (0-99); LIPEMIA HEMOLYSIS FLAG 90 (0-99); MEAN CELL HEMOGLOBIN 31.3 pg (27.9-34.1); MEAN CELL HEMOGLOBIN CONCENTR. 34.2 g/dL (32.4-36.7); MEAN CELL VOLUME 91.5 fL (81.5-99.8); MEAN PLATELET VOLUME 10.1 fL (8.7-11.7); PLATELET CLUMPS FLAG 0 (0-99); PLATELET COUNT 203 10^3/uL (150-400); RED BLOOD CELL COUNT 4.95 10^6/uL (4.40-6.38); RED CELL DISTRIBUTION WIDTH 13.1 % (11.5-15.2)
[2016-10-03] MEDS ORDERED: CEFAZOLIN 2 GM/DEXTROSE/100 ML BAG IV ONE (09:04)
[2016-10-03] MEDS ORDERED: fentaNYL 250 MCG/5 ML INJ ONE ×2 (10:01→10:51)
[2016-10-03] MEDS ORDERED: PROPOFOL 200 MG/20 ML VIAL ONE ×2 (10:01→10:51)
[2016-10-03] MEDS ORDERED: BUPIVACAINE 0.5% 30 ML SDV ONE (10:16)
[2016-10-03] MEDS ORDERED: LIDOCAINE 2% 100 MG/5 ML SYR ONE (10:51)
[2016-10-03] MEDS ORDERED: ROCURONIUM 100 MG/10 ML VIAL ONE ×2 (10:51→14:11)
[2016-10-03] MEDS ORDERED: MIDAZOLAM 2 MG/2 ML VIAL ONE (10:54)
[2016-10-03] MEDS ORDERED: METOCLOPRAMIDE 10 MG/2 ML VIAL ONE (10:57)
[2016-10-03] MEDS ORDERED: DEXAMETHASONE 4 MG/ML VIAL ONE ×2 (10:58)
[2016-10-03] MEDS ORDERED: SKIN ADHESIVE (DERMABOND) 1 EACH TP ONE (15:27)
[2016-10-03] MEDS ORDERED: ONDANSETRON 4 MG/2 ML VIAL IVP PRN (15:35)
[2016-10-03] MEDS ORDERED: ACETAMINOPHEN 325 MG TAB PO PRN (15:35)
--- NOTE | 2016-10-03 15:38 | POSTOPPROG ---
Post Op Note Date of Operation: 10/03/16 Surgeon: Valerie Gill Crew Person: nirmal Anesthesiologist: jose Anesthesia: GET(General Endotracheal) Pre-op Diagnosis: RLL lung cancer Post-op Diagnosis: same Indication: 71 with RLL lung cancer Procedure: mediastinoscopy, RLLobectomy Findings: neg med. Cancer in lobe Inf/Abcess present in the surg proc area at time of surgery?: No EBL: 50-100 Drains: Other (chest tube)
[2016-10-03] MEDS ORDERED: NS 1,000 ML IV SCH (15:45)
[2016-10-03] MEDS ORDERED: fentaNYL 100 MCG/2 ML INJ ONE (16:03)
[2016-10-03] MEDS ORDERED: HYDROmorphONE/DILAUDID 1 MG/ML SYR ONE (16:43)
[2016-10-03] MEDS: HYDROmorphONE/DILAUDID 1 MG/ML SYR IVP PRN ×2 (18:00→19:52)
[2016-10-03] MEDS: OXYCODONE/APAP 5/325 TAB PO PRN ×2 (19:49→21:35)
[2016-10-03] MEDS: LATANOPROST 0.005% 2.5 ML OPHT DROPS EACHEYE SCH (19:54)
[2016-10-04 04:27] LABS: % IMMATURE GRANULYOCYTES 0.9 % (0.0-1.1); ABSOLUTE IMMATURE GRANULOCYTES 0.12 10^3/uL (0.00-0.10); ADD DIFF? NO; ADD MORPH? NO; ADD SCAN? NO; ATYPICAL LYMPHOCYTE FLAG 10 (0-99); FRAGMENT RBC FLAG 0 (0-99); HEMATOCRIT 41.6 % (40.0-51.0); LEFT SHIFT FLG 0 (0-99); LIPEMIA HEMOLYSIS FLAG 80 (0-99); MEAN CELL HEMOGLOBIN 30.4 pg (27.9-34.1); MEAN CELL HEMOGLOBIN CONCENTR. 33.7 g/dL (32.4-36.7); MEAN CELL VOLUME 90.4 fL (81.5-99.8); MEAN PLATELET VOLUME 10.1 fL (8.7-11.7); PLATELET CLUMPS FLAG 20 (0-99); PLATELET COUNT 221 10^3/uL (150-400); RED CELL DISTRIBUTION WIDTH 12.9 % (11.5-15.2)
[2016-10-04 04:41] LABS: ANION GAP 9 mEq/L (8-16); CALCIUM 8.6 mg/dL (8.5-10.4); CARBON DIOXIDE 21 mEq/l (22-31); CHLORIDE 107 mEq/L (97-110); CREATININE 0.7 mg/dL (0.7-1.3); GLOMERULAR FILTRATION RATE > 60; GLUCOSE 143 mg/dL (70-100); POTASSIUM 4.5 mEq/L (3.5-5.2); SODIUM 137 mEq/L (134-144)
[2016-10-04] MEDS: HYDROmorphONE/DILAUDID 1 MG/ML SYR IVP PRN ×5 (08:02→17:10)
[2016-10-04] MEDS: OXYCODONE/APAP 5/325 TAB PO PRN ×4 (08:29→21:59)
[2016-10-04] MEDS ORDERED: LACTULOSE 20 GM/30 ML UDCUP PO PRN (08:46)
[2016-10-04] MEDS ORDERED: POLYETHYLENE GLYCOL 3350 17 GM PKT PO PRN (08:46)
[2016-10-04] MEDS ORDERED: MAGNESIUM HYDROXIDE 30 ML UDCUP PO PRN (08:46)
[2016-10-04] MEDS ORDERED: BISACODYL 10 MG SUPP PR PRN (08:46)
[2016-10-04] MEDS: LEVOBUNOLOL 0.5% EACHEYE SCH (09:16)
[2016-10-04] MEDS: SENNOSIDES/DOCUSATE SODIUM TAB PO SCH ×2 (09:16→22:03)
[2016-10-04] MEDS: OPTH EACHEYE SCH (09:16)
--- NOTE | 2016-10-04 10:14 | SOAPPROG ---
SOAP Progress Note Assessment/Plan: Assessment: 71yo M POD#1 s/p mediastinoscopy with VATS right upper lobectomy for lung ca Path pending Neuro: Pain controlled with IV and PO. Try lidoderm CV: hemodynamically stable. monitor Resp: Chest tube to water seal. Wean O2. Continue IS and ambulation GI: regular diet. bowel protocol : Villegas out tomorrow OK to transfer to [facility]-surg. seen with Dr. Gill S: Pain of right anterior chest wall. Pain withdeep breaths O: sitting upright in chair, comfortable, NAD Neck incision CDI CTAB decreased at bases, R>L RRR Incisions CDI, dressing intact Chest tube with serosanguinous output 10/04/16 10:18 Objective: Vital Signs Temp Pulse Resp BP Pulse Ox 37.0 C 73 16 123/71 H 97 10/04/16 08:00 10/04/16 08:00 10/04/16 08:00 10/04/16 08:00 10/04/16 08:00 Laboratory Results 10/04/16 04:05 10/04/16 04:05 10/03/16 10/04/16 10/05/16 05:59 05:59 05:59 Intake Total 2280 Output Total 1493 Balance 787 ICD10 Worksheet Patient Problems: Problems Problem Status Onset Diarrhea Acute Pneumonia Acute
[2016-10-04] MEDS: LIDOCAINE 5% 1 EA PATCH TD SCH (11:58)
[2016-10-04] MEDS: LATANOPROST 0.005% 2.5 ML OPHT DROPS EACHEYE SCH (17:01)
[2016-10-04] MEDS: PATCH REMOVAL 1 EA PATCH TD SCH ×2 (21:00→22:03)
[2016-10-05] MEDS: OXYCODONE/APAP 5/325 TAB PO PRN ×5 (02:38→20:38)
[2016-10-05] MEDS: OPTH EACHEYE SCH (06:48)
[2016-10-05] MEDS: LEVOBUNOLOL 0.5% EACHEYE SCH (06:48)
[2016-10-05] MEDS: LIDOCAINE 5% 1 EA PATCH TD SCH (08:03)
[2016-10-05] MEDS: SENNOSIDES/DOCUSATE SODIUM TAB PO SCH (08:04)
--- NOTE | 2016-10-05 09:45 | SOAPPROG ---
SOAP Progress Note Assessment/Plan: Assessment: 71yo M POD#2 s/p mediastinoscopy with VATS right upper lobectomy for lung ca Path pending Neuro: Pain controlled with PO CV: hemodynamically stable. monitor Resp: Chest tube removed this am. CXR in 4 hours. Wean O2. Continue IS and ambulation GI: regular diet. bowel protocol keep chest tube dressing in place x 48 hours - do not get wet DC tomorrow am. seen with Dr. Gill S: Pain with coughing and at chest tube exit site O: laying in bed, comfortable, NAD Neck incision CDI CTAB decreased at bases, R>L RRR Incisions CDI, dressing intact Chest tube with serosanguinous output. removed without difficulty Objective: Vital Signs Temp Pulse Resp BP Pulse Ox 36.6 C 78 20 116/78 91 L 10/05/16 04:00 10/05/16 08:00 10/05/16 08:00 10/05/16 08:00 10/05/16 08:00 Laboratory Results 10/04/16 04:05 10/04/16 04:05 10/04/16 10/05/16 10/06/16 05:59 05:59 05:59 Intake Total 2280 250 Output Total 1493 146 Balance 787 104 ICD10 Worksheet Patient Problems: Problems Problem Status Onset Diarrhea Acute Pneumonia Acute
[2016-10-05] MEDS: LATANOPROST 0.005% 2.5 ML OPHT DROPS EACHEYE SCH (18:33)
[2016-10-05 22:03] VITALS: PULSE 88; TEMP 97.6
[2016-10-06] MEDS: SENNOSIDES/DOCUSATE SODIUM TAB PO SCH ×2 (00:06→08:09)
[2016-10-06] MEDS: OXYCODONE/APAP 5/325 TAB PO PRN ×2 (00:20→04:47)
[2016-10-06] MEDS: OPTH EACHEYE SCH (05:56)
[2016-10-06] MEDS: LEVOBUNOLOL 0.5% EACHEYE SCH (05:56)
[2016-10-06 07:27] VITALS: BP 124/81; RESP 14
[2016-10-06 07:32] VITALS: O2SAT 91
[2016-10-06] MEDS: LIDOCAINE 5% 1 EA PATCH TD SCH (08:43)
[2016-10-06] MEDS ORDERED: KETOROLAC 15 MG/1 ML SDV IVP SCH (09:00)
[2016-10-06] MEDS ORDERED: FLU VACC TS 2016-17(65YR+)/PF 0.5 ML SYR (FLUZONE HIGH DOSE) IM ONE (11:33)
--- NOTE | 2016-10-06 19:28 | SOAPPROG ---
SOAP Progress Note Assessment/Plan: Assessment: POD # 3 s/p RLL chest tube pulled without pneumothorax Doing well Eager to go home May remove dressing and shower on Sat O2 2 L continuous F/U dr ramires in 1 week path pending S: Feeling well. Worried about oxygen O: Sitting up in chair Neck cdi Chest incisions cdi Lungs ctab regular rate Plan: 10/06/16 19:26 Objective: Vital Signs Temp Pulse Resp BP Pulse Ox 36.4 C 88 14 124/81 H 91 L 10/05/16 22:01 10/05/16 22:01 10/06/16 07:25 10/06/16 07:25 10/06/16 07:32 Laboratory Results 10/04/16 04:05 10/04/16 04:05 10/05/16 10/06/16 10/07/16 05:59 05:59 05:59 Intake Total 250 550 Output Total 146 Balance 104 550 ICD10 Worksheet Patient Problems: Problems Problem Status Onset Diarrhea Acute Pneumonia Acute
== END 2016-10-06 12:11 | disposition home or self-care (01) | DRG 165 ==
LOC: F3E 08:07 → EEVIPCON 08:07 → F2N 17:46 → F3E 10-04 16:51
PROVIDERS: ADMIT Surgery; ATTEND Surgery
PROC: 0BT Respiratory System, Resection (ICD-10-PCS; principal; 2016-10-03 10:15)
DX: C34.31 Malignant neoplasm of lower lobe, right bronchus or lung (principal); E78.00 Pure hypercholesterolemia, unspecified; H40.9 Unspecified glaucoma; H35.30 Unspecified macular degeneration; J44.9 Chronic obstructive pulmonary disease, unspecified
CPT/HCPCS: 97161-GP; G0008; G8978-GP-CI; G8979-GP-CI; J0690; J1100; J1170; J1885; J2001; J2250; J2704; J2765; J3010

== ENCOUNTER → 2016-10-10 | Outpatient (CLI) | payer OTHER | LOC: FIMAGING 10:59 | PROVIDERS: ATTEND Surgery | DX: J90 Pleural effusion, not elsewhere classified (principal); Z85.118 Personal history of other malignant neoplasm of bronchus and lung ==

== ENCOUNTER 2016-11-10 18:12 | Inpatient (IN) | payer OTHER ==
[2016-11-10] MEDS ORDERED: ONDANSETRON 4 MG/2 ML VIAL IVP ONE (18:34)
[2016-11-10] MEDS ORDERED: HYDROmorphONE/DILAUDID 1 MG/ML SYR IVP ONE ×2 (18:34→19:38)
--- NOTE | 2016-11-10 18:35 | EDPHY ---
H & P Time Seen by Provider: 11/10/16 18:23 HPI/ROS: CHIEF COMPLAINT: Fever after chemotherapy HISTORY OF PRESENT ILLNESS: 71-year-old man was diagnosed with lung cancer and had surgical resection by Dr. Gill on October 03 of this year. He started chemotherapy and had his 1st treatment last Monday. Of note since then he has had pain in both hips and pain on the right side of his chest. Of note is grand kids also were diagnosed with croup last Monday and he has begun to develop a bit of a cough since then. Today according to his son he appeared more short of breath and started developing a fever up to 100.8 tonight. Not associated with skin rash or urinary symptoms, he does have a little bit of dizziness. REVIEW OF SYSTEMS: Eye: no change in vision; denied to me ENT: no sore throat Cardiac: no chest pain or syncope Pulmonary: HPI Abdomen: no vomiting, diarrhea, abdominal pain Musculoskeletal: HPI Skin: no rash Neuro: no headache Constitutional: HPI : no urinary symptoms A comprehensive 10 point review of systems is otherwise negative aside from elements mentioned in the history of present illness. PAST MEDICAL HISTORY: Includes lung cancer, glaucoma and macular degeneration Social history: Here with son General Appearance: Alert and conversant, cooperative. Eyes: No scleral icterus. ENT, Mouth: Normal mucous membranes. Respiratory: Decreased breath sounds bilaterally and mildly tachypneic. Cardiovascular: Regular rate and rhythm. Gastrointestinal: Abdomen is soft and non tender. Neurological: Alert and oriented x3. Normally conversant. Face symmetric, normal movement and sensation in all extremities. Normal motor and sensory in both feet, negative for clonus. Skin: Warm and dry, no rashes. Right thoracic incisions clean dry and intact and healing appropriately without evidence of cellulitis. Musculoskeletal: No peripheral edema and no joint swelling. Can range both hips without change in hip pain, pelvis stable. Psychiatric: Not agitated. Emergency Department course/MDM: Possible febrile neutropenia. Plan for x-rays of the chest and both hips, Dilaudid 1 mg IV for pain, labs to include CBC with white blood cell count and manual differential, urinalysis and blood cultures and lactate. 1934: Results discussed, CT angiogram discussed and consented at this time for elevated D-dimer and chest pain. And normal saline 1 L IV, repeat 1 mg IV Dilaudid. 2039: Still having pain, still uncomfortable, will admit for pain control and observation. At this time not neutropenic and no source of infection or cause for fever found. Not febrile in the emergency department. Smoking Status: Former smoker Constitutional: Initial Vital Signs Temperature (C) 36.8 C 11/10/16 18:17 Heart Rate 104 H 11/10/16 18:17 Respiratory Rate 22 H 11/10/16 18:17 Blood Pressure 118/64 11/10/16 18:17 O2 Sat (%) 91 L 11/10/16 18:17 O2 Delivery Mode Nasal Cannula O2 (L/minute) 2 Allergies/Adverse Reactions: No Known Allergies Allergy (Verified 11/10/16 18:14) Home Medications: Medication Instructions Recorded Latanoprost 0.005% [Xalatan 0.005% 1 drops EACHEYE HS 08/21/16 (*)] Multivitamins [Multivitamin (*)] 1 each PO DAILY 08/21/16 [place]-3 Fatty Acids [Fish Oil 1000 1,000 mg PO BID 08/21/16 mg (*)] Levobunolol 0.5% 1 drop EACHEYE DAILY 10/03/16 Vit C/Dl-E AC/Lut/Copper/Znox 1 each PO BID 10/03/16 [Preservision Softgel] Medical Decision Making - Diagnostics EKG Interpretation: 12-lead EKG interpreted by me; official reading is in trace master. My interpretation is sinus rhythm rate 95 no acute ischemic changes. Imaging Results: Imaging Impressions Chest X-Ray 11/10/16 18:33 Impression: Status post right lower lobectomy. Negative for pneumonia. 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 Chest/Thorax CTA 11/10/16 19:34 Impression: 1. No pulmonary emboli. 2. Right lower lobectomy. 3. Multiple small mediastinal lymph nodes, unchanged from August 22, 2016. Report telephoned to Dr. Pabon at [address] pulmonary arteriogram discussed with Dr. Zhang at 8:25 p.m. negative for PE. Differential Diagnosis: Differential for fever after chemotherapy considered including but not limited to viral syndrome, sepsis, pneumonia, UTI, drug reaction. Consult/Admit Bed Type: Bode - Data Points Laboratory Results: Laboratory Results 11/10/16 18:33 11/10/16 18:40 11/10/16 11/10/16 11/10/16 18:40 18:40 18:40 WBC RBC Hgb Hct MCV MCH MCHC RDW Plt Count MPV Neut % (Auto) Lymph % (Auto) [place] % (Auto) Eos % (Auto) Baso % (Auto) Nucleat RBC Rel Count Absolute Neuts (auto) Absolute Lymphs (auto) Absolute Monos (auto) Absolute Eos (auto) Absolute Basos (auto) Absolute Nucleated RBC Immature Gran % Seg Neutrophils % Band Neutrophils % Lymphocytes % Monocytes % Eosinophils % Immature Gran # Absolute Seg Neuts Absolute Band Neuts Absolute Lymphocytes Absolute Monocytes Absolute Eosinophils RBC/WBC/PLT Morphology Atypical Lymphocytes Platelet Estimate PT 13.7 SEC SEC (12.0-15.0) INR 1.06 (0.83-1.16) APTT 27.6 SEC SEC (23.0-38.0) D-Dimer 0.95 ug/mLFEU H ug/mLFEU (0.00-0.50) VBG Lactic Acid Sodium 130 mEq/L L mEq/L (134-144) Potassium 4.5 mEq/L mEq/L (3.5-5.2) Chloride 95 mEq/L L mEq/L (97-110) Carbon Dioxide 24 mEq/l mEq/l (22-31) Anion Gap 11 mEq/L mEq/L (8-16) BUN 20 mg/dL mg/dL (7-23) Creatinine 1.0 mg/dL mg/dL (0.7-1.3) Estimated GFR > 60 Glucose 117 mg/dL H mg/dL (70-100) Calcium 9.2 mg/dL mg/dL (8.5-10.4) Total Bilirubin 1.2 mg/dL mg/dL (0.1-1.4) Urine Color Pending Urine Appearance Pending Urine pH Pending Ur Specific [place] Pending Urine Protein Pending Urine Ketones Pending Urine Blood Pending Urine Nitrate Pending Urine Bilirubin Pending Urine Urobilinogen Pending Ur Leukocyte Esterase Pending Urine Glucose Pending 11/10/16 11/10/16 18:40 18:33 WBC 3.88 10^3/uL 10^3/uL (3.80-9.50) RBC 5.07 10^6/uL 10^6/uL (4.40-6.38) Hgb 15.6 g/dL g/dL (13.7-17.5) Hct 44.9 % % (40.0-51.0) MCV 88.6 fL fL (81.5-99.8) MCH 30.8 pg pg (27.9-34.1) MCHC 34.7 g/dL g/dL (32.4-36.7) RDW 13.0 % % (11.5-15.2) Plt Count 182 10^3/uL 10^3/uL (150-400) MPV 11.1 fL fL (8.7-11.7) Neut % (Auto) Not Reported Lymph % (Auto) Not Reported [place] % (Auto) Not Reported Eos % (Auto) Not Reported Baso % (Auto) Not Reported Nucleat RBC Rel Count 0.0 % % (0.0-0.2) Absolute Neuts (auto) Not Reported Absolute Lymphs (auto) Not Reported Absolute Monos (auto) Not Reported Absolute Eos (auto) Not Reported Absolute Basos (auto) Not Reported Absolute Nucleated RBC 0.00 10^3/uL 10^3/uL (0-0.01) Immature Gran % Not Reported Seg Neutrophils % 68 % % Band Neutrophils % 5 % % Lymphocytes % 23 % % Monocytes % 1 % % Eosinophils % 3 % % Immature Gran # Not Reported Absolute Seg Neuts 2.64 10^/uL 10^/uL (1.70-6.50) Absolute Band Neuts 0.19 10^3/uL 10^3/uL (0.00-0.70) Absolute Lymphocytes 0.89 10^3/uL L 10^3/uL (1.00-3.00) Absolute Monocytes 0.04 10^3/uL L 10^3/uL (0.30-0.80) Absolute Eosinophils 0.12 10^3/uL 10^3/uL (0.03-0.40) RBC/WBC/PLT Morphology NORMAL (NORMAL) Atypical Lymphocytes 1+ H Platelet Estimate ADEQUATE (ADEQ) PT INR APTT D-Dimer VBG Lactic Acid 1.7 mmol/L mmol/L (0.7-2.1) Sodium Potassium Chloride Carbon Dioxide Anion Gap BUN Creatinine Estimated GFR Glucose Calcium Total Bilirubin Urine Color Urine Appearance Urine pH Ur Specific [place] Urine Protein Urine Ketones Urine Blood Urine Nitrate Urine Bilirubin Urine Urobilinogen Ur Leukocyte Esterase Urine Glucose Medications Given: Discontinued Medications Hydromorphone HCl (Dilaudid) 1 mg IVP EDNOW ONE Stop: 11/10/16 18:35 Last Admin: 11/10/16 18:58 Dose: 1 mg Hydromorphone HCl (Dilaudid) 1 mg IVP EDNOW ONE Stop: 11/10/16 19:39 Last Admin: 11/10/16 20:14 Dose: 1 mg Sodium Chloride (Ns) 1,000 mls @ 0 mls/hr IV ONCE ONE PRN Reason: Wide Open Stop: 11/10/16 19:39 Last Admin: 11/10/16 19:46 Dose: 1,000 mls Ondansetron HCl (Zofran) 4 mg IVP EDNOW ONE Stop: 11/10/16 18:35 Last Admin: 11/10/16 18:58 Dose: 4 mg Departure - Departure Disposition: [facility] Inpatient Acute Clinical Impression: History of fever, Hip pain, bilateral Chest pain Qualifiers: Chest pain type: unspecified Qualified Code(s): R07.9 - Chest pain, unspecified Condition: Fair Referrals: UNKNOWN,DOCTOR [Other] - As per Instructions Lisa Victoria MD [Medical Doctor] - As per Instructions
--- NOTE | 2016-11-10 18:39 | CPEKG ---
Heart Rate: 95 RR Interval: 632 P-R Interval: 168 QRSD Interval: 78 QT Interval: 340 QTC Interval: 428 P [place]: 68 QRS [place]: 28 T Wave [place]: 12 EKG Severity - NORMAL ECG - EKG Impression: SINUS RHYTHM Electronically Signed By: Valentino Pabon 10-Nov-2016 18:39:11
[2016-11-10 18:54] LABS: ADD DIFF? YES; ADD MORPH? NO; ADD SCAN? NO; ATYPICAL LYMPHOCYTE FLAG 90 (0-99); FRAGMENT RBC FLAG 0 (0-99); HEMATOCRIT 44.9 % (40.0-51.0); HEMOGLOBIN 15.6 g/dL (13.7-17.5); LEFT SHIFT FLG 40 (0-99); LIPEMIA HEMOLYSIS FLAG 90 (0-99); MEAN CELL HEMOGLOBIN 30.8 pg (27.9-34.1); MEAN CELL HEMOGLOBIN CONCENTR. 34.7 g/dL (32.4-36.7); MEAN CELL VOLUME 88.6 fL (81.5-99.8); MEAN PLATELET VOLUME 11.1 fL (8.7-11.7); PLATELET CLUMPS FLAG 20 (0-99); PLATELET COUNT 182 10^3/uL (150-400); RED BLOOD CELL COUNT 5.07 10^6/uL (4.40-6.38)
[2016-11-10 19:06] LABS: INR 1.06 (0.83-1.16); PROTIME(PATIENT) 13.7 SEC (12.0-15.0)
[2016-11-10 19:07] LABS: APTT 27.6 SEC (23.0-38.0)
[2016-11-10 19:09] LABS: ANION GAP 11 mEq/L (8-16); BILIRUBIN,TOTAL 1.2 mg/dL (0.1-1.4); CALCIUM 9.2 mg/dL (8.5-10.4); CARBON DIOXIDE 24 mEq/l (22-31); CHLORIDE 95 mEq/L (97-110); GLOMERULAR FILTRATION RATE > 60; GLUCOSE 117 mg/dL (70-100); POTASSIUM 4.5 mEq/L (3.5-5.2); SODIUM 130 mEq/L (134-144)
[2016-11-10] MEDS ORDERED: NS 1,000 ML IV ONE ×2 (19:38→20:45)
[2016-11-10 19:43] LABS: PLATELET ESTIMATE ADEQUATE (ADEQ)
[2016-11-10] MEDS ORDERED: IOPAMIDOL (ISOVUE 370) 100 ML BTL IV ONE (19:44)
[2016-11-10] MEDS ORDERED: ONDANSETRON 4 MG/2 ML VIAL IVP PRN (21:27)
[2016-11-10] MEDS ORDERED: ZOLPIDEM TARTRATE 5 MG TAB PO PRN (21:27)
[2016-11-10] MEDS ORDERED: IBUPROFEN 200 MG TAB PO PRN (21:27)
[2016-11-10] MEDS ORDERED: ALBUTEROL 60 PUFFS/8 GM MDI IH PRN (21:27)
[2016-11-10] MEDS ORDERED: ACETAMINOPHEN 325 MG TAB PO PRN (21:27)
--- NOTE | 2016-11-10 21:43 | PDGENHP ---
History and Physical History and Physical: HISTORY AND PHYSICAL CC: Fever coughs and aches HISTORY: This gentleman who started chemotherapy for lung cancer recently comes in today with several complaints including temperature 100.8 degrees today and some aches. He also admits to cough. It is very difficult to obtain from this gentleman the timing of all of his events. I know that he was here during late September for a partial lung resection done by Dr. Gill for lung cancer. This is now no carcinoma. He was discharged couple days later in stable condition and says he did well. However he started chemotherapy somewhere between 2 and 10 days ago but I really can' t determine when that was he cannot tell me at this point which medicines he was given. In addition he has onset of new symptoms the timing of which is very difficult to ascertain. He did have a temperature of 100.8 degrees today and as best I can tell he has not had fevers before today. He says that his 2 grandsons his son and his [id number], who he stays with have all been sick with a cough and has 2 grandsons were diagnosed with croup. It is unknown to me whether that group diagnosis was based on clinical picture or specific testing. The patient himself has been having a cough but I can't really determine when that cough started. It sounds like it is a dry cough and he does not describe anything that sounds like croupy cough. He denies any chest pain with this. He is unable to determine if it is any more short of breath than usual but it sounds like he is certainly more limited in his activity partly by breathing. He does have COPD. He does not usually use oxygen at home. He did not go home from surgery with oxygen from when he tells me. In addition to all the above he has had a burning sensation in the low sternal upper epigastric area ever since his surgery last month. He presume this was due to surgery. He cannot determine that was made any better or worse by eating since then. It has not correlated with any of the respiratory symptoms described above. He also complains that he has got quite a bit of pain in both buttocks which feels like he is being stabbed repeatedly with a river pilot knife. He denies any rectal or anal pain and denies any difficulty passing stools. He says that over the past week he has had 2 bowel movements which is typical for him. What is not usual for him is that the 2 stools had in the past week have been loose but without blood or pain. He does describe feeling very fatigued and weak but he has been able to get up and walk around. ROS: A comprehensive 10 system review revealed no other significant findings PAST MEDICAL HISTORY: Adenocarcinoma of the lung diagnosed in 2017 with lung resection here last month. COPD 1 episode of pneumonia FAMILY MEDICAL HISTORY: Multiple family members with similar cough and fevers as described above No lung cancers SOCIAL HISTORY: He just moved here in July from [place] to be near his son and his family Former smoker Retired MEDICATIONS: The patients list has been reconciled by our clinical pharmacist in the EMR. I have reviewed the list and ordered appropriate medicines. PHYSICAL EXAMINATION: Vital Signs: Temperature is normal here so far. Initial respirations and pulse were slightly rapid this resolved with oxygen therapy. Blood pressure is good Executive Administrative Asst: Sinus rhythm in the ER on my review Examination: General: alert, oriented, good mentation, relaxed Skin: warm, dry, good color, no rash; of note I did not see decubitus ulcerations on the buttocks HEENT: normal Neck: no mass or jvd Resps: Mildly labored on oxygen Lungs: Diffuse coarse expiratory wheeze with slow expiratory phase Heart: regular, no murmur Abdomen: soft, nondistended, nontender, +BS, no mass Upper Extremities: normal Lower Extremities: no edema, warm No Bleeding or bruising Neurologic: normal speech/language, normal surgical brace maker, no focal weakness IV site: looks normal LABORATORY DATA: Unremarkable CBC with 2800 neutrophils D-dimer elevated at 0.9 Sodium slightly low at 130 Blood cultures have been obtained and are pending RADIOLOGY STUDIES: Chest CT scan done in the ER, my personal review and interpretation of the images: No evidence of pneumonia or heart failure and no PE 12 lead EKG done in the ER, my personal interpretation imaging: This is a normal 12 lead EKG was sinus rhythm and no ischemic or other acute changes ASSESSMENT: -Febrile illness in a patient who just received chemotherapy recently but who is not neutropenic at present -acute respiratory infectious symptoms with cough and fever and multiple family members with similar illness, question croup in grandson's -acute hypoxemic respiratory failure with COPD exacerbation, mild -burning sensation in epigastrium and lower sternal area could potentially be reflux related or somehow related to his surgery. There is nothing ischemic on EKG and troponin is normal this does not really sound likely Cardiac -newly diagnosed adenocarcinoma of the low lung with resection of that mass last month, currently receiving chemotherapy after 1st round PLANS: -I have ordered influenza a and B PCR as well as a viral respiratory panel swab -will treat COPD with bronchodilators, and will start with a low-dose of prednisone and follow closely -follow white cell counts closely -In the morning will try and get more information from the Oncology team in terms of what chemotherapies he received an when -will begin proton pump inhibitor therapy given the per burning sensation that may be reflux -will monitor the poking stabbing sensation in his buttocks and review with Oncology, question if this could be and neuropathy symptoms related to chemo -DVT prophylaxis -If he has further loose stools will consider testing for C difficile if his symptoms seem appropriate I have reviewed the patient's case in detail with Dr. Valentino Pabon I have reviewed the patient's past medical records as part of this assessment, including records from previous hospital admissions here including EKGs laboratory a physicians notes et cetera
[2016-11-10] MEDS: FAMOTIDINE 20 MG TAB PO SCH (22:17)
[2016-11-10] MEDS: predniSONE 20 MG TAB PO SCH (22:17)
[2016-11-10] MEDS: D5W 1/2 NS W/ 20 KCl/L 1,000 ML IV SCH (22:30)
[2016-11-10 22:46] LABS: COLOR YELLOW; LEUKOCYTE ESTERASE,URINE NEGATIVE (NEGATIVE); NITRITE,URINE NEGATIVE (NEGATIVE)
[2016-11-11 05:19] LABS: % IMMATURE GRANULYOCYTES 1.4 % (0.0-1.1); ABSOLUTE IMMATURE GRANULOCYTES 0.03 10^3/uL (0.00-0.10); ADD DIFF? NO; ADD MORPH? NO; ADD SCAN? YES; FRAGMENT RBC FLAG 0 (0-99); HEMATOCRIT 40.2 % (40.0-51.0); HEMOGLOBIN 13.9 g/dL (13.7-17.5); LEFT SHIFT FLG 60 (0-99); LIPEMIA HEMOLYSIS FLAG 90 (0-99); MEAN CELL HEMOGLOBIN 30.7 pg (27.9-34.1); MEAN CELL HEMOGLOBIN CONCENTR. 34.6 g/dL (32.4-36.7); MEAN CELL VOLUME 88.7 fL (81.5-99.8); MEAN PLATELET VOLUME 10.9 fL (8.7-11.7); PLATELET CLUMPS FLAG 10 (0-99); PLATELET COUNT 127 10^3/uL (150-400); RED BLOOD CELL COUNT 4.53 10^6/uL (4.40-6.38); RED CELL DISTRIBUTION WIDTH 12.9 % (11.5-15.2)
[2016-11-11 05:29] LABS: ANION GAP 7 mEq/L (8-16); CALCIUM 8.6 mg/dL (8.5-10.4); CARBON DIOXIDE 22 mEq/l (22-31); CHLORIDE 100 mEq/L (97-110); CREATININE 0.8 mg/dL (0.7-1.3); GLOMERULAR FILTRATION RATE > 60; GLUCOSE 116 mg/dL (70-100); POTASSIUM 4.5 mEq/L (3.5-5.2); SODIUM 129 mEq/L (134-144)
[2016-11-11 05:49] LABS: ATYPICAL LYMPHOCYTE FLAG 270 (0-99)
[2016-11-11] MEDS: IPRATROPIUM/ALBUTEROL 3 ML DEYVIAL IH SCH ×4 (06:01→20:51)
[2016-11-11 06:29] LABS: SCAN POSITIVE
[2016-11-11 06:35] LABS: PLATELET ESTIMATE DECREASED (ADEQ)
--- NOTE | 2016-11-11 08:27 | HOSPPROG ---
Hospitalist Progress Note Assessment/Plan: #Acute hypoxemic resp failure: due to parainfluenza. CTA negative for PE #Suspected underlying COPD (significant tobacco hx) exacerbation: Duonebs, steroids #Hypovolemic hyponatremia: decreased PO/ IVFs #Lung adenocarcinoma: first chemo 11/04 with Taxol, Carboplatin. s/p lobectomy #Weakness: due to acute illness, hyponatremia, PT to evaluate #Leukopenia: filgastrim per Onc #Fever: due to viral syndrome. Negative flu. No PNA. Blood culture NGTD #Diet: regular #DVT ppx Subjective: tearful, feels weak with walking Objective: Vital Signs Temp Pulse Resp BP Pulse Ox 36.6 C 77 16 116/67 91 L 11/11/16 07:33 11/11/16 07:33 11/11/16 07:33 11/11/16 07:33 11/11/16 07:33 Laboratory Results 11/11/16 04:38 11/11/16 04:38 11/10/16 11/11/16 11/12/16 05:59 05:59 05:59 Intake Total 2500 Output Total 1425 Balance 1075 PT 13.7 SEC (12.0-15.0) 11/10/16 18:40 INR 1.06 (0.83-1.16) 11/10/16 18:40 - Physical Exam Constitutional: other (tearful) Eyes: PERRL Ears, Nose, Mouth, Throat: hearing normal, dry mucous membranes Cardiovascular: regular rate and rhythym, no murmur, rub, or gallop Respiratory: no respiratory distress, expiratory wheeze, rhonchi Gastrointestinal: normoactive bowel sounds, soft, non-tender abdomen Genitourinary: no bladder fullness Skin: warm Musculoskeletal: generalized weakness Neurologic: AAOx3 Psychiatric: interacting appropriately, other (tearful) ICD10 Worksheet Patient Problems: Problems Problem Status Onset Chest pain Acute Hip pain, bilateral Acute History of fever Acute Diarrhea Acute Pneumonia Acute
[2016-11-11] MEDS: MULTIVITAMINS 1 EACH TAB PO SCH (10:05)
[2016-11-11] MEDS: ENOXAPARIN 40 MG/0.4 ML SYR SC SCH (10:05)
[2016-11-11] MEDS: OMEGA-3 FATTY ACIDS 1,000 MG CAP PO SCH ×2 (10:05→20:14)
[2016-11-11] MEDS: PRESERVISION AREDS2 FORMULA EYE VIT 1 EACH PO SCH ×2 (10:05→20:14)
[2016-11-11] MEDS: predniSONE 20 MG TAB PO SCH (10:06)
[2016-11-11] MEDS: FAMOTIDINE 20 MG TAB PO SCH ×2 (10:06→20:14)
[2016-11-11] MEDS: LEVOBUNOLOL 0.5% 5 ML OPHT.BTL EACHEYE SCH (10:07)
[2016-11-11 11:12] LABS: RESPPCR RESULT SEE COMMENTS
[2016-11-11] MEDS ORDERED: FILGRASTIM-SNDZ 300 MCG/0.5 ML SYR SC SCH (14:00)
[2016-11-11] MEDS: D5W 1/2 NS W/ 20 KCl/L 1,000 ML IV SCH (14:32)
--- NOTE | 2016-11-11 15:35 | GHP ---
[f rep st] HISTORY AND PHYSICAL DATE OF ADMISSION: 11/10/2016 HISTORY OF PRESENT ILLNESS: The patient is a 71-year-old gentleman who has a recently resected lung carcinoma. This is a stage II adenocarcinoma, treated with a right lower lobectomy and was resected on 10/07. He elected to be treated with adjuvant Taxol and carboplatin, and received his first dose 1 week ago, on 11/04. He has felt poorly for the last 4 to 5 days with a cough and has had a temperature up to 100.8. He has also had some diarrhea. He lives at home with his son, [id number], and 2 grandchildren, all of whom have been sick with a variety of illnesses. He presented to the emergency room last night and, because of his fever and immunosuppressed state, was admitted for evaluation. A chest CT scan showed no evidence of pneumonia, heart failure, or pulmonary embolism. PAST MEDICAL HISTORY: Significant for the lung cancer and a fairly significant smoking history. He recently moved here in July from [place] to be near his son and family. REVIEW OF SYSTEMS: Negative except as discussed above. PHYSICAL EXAMINATION: VITAL SIGNS: Blood pressure 138/70, temp 97.9. GENERAL : He is a bit anxious and occasionally tearful. NECK: No masses. Pharynx is unremarkable. LUNGS: Coarse expiratory wheezes. CARDIAC: Unremarkable. ABDOMEN: Benign. EXTREMITIES: No edema. NEUROLOGIC: Nonfocal. LABORATORY: White count on admission is 3.88, dropping to 2.22 today; current hemoglobin 13.9; hematocrit 40.2; platelets 127,000. Chemistry panel shows glucose of 116. Respiratory panel by PCR is significant for parainfluenza type 3. IMPRESSION/PLAN: Patient with resected lung cancer status post his first cycle of adjuvant carboplatin and Taxol, presenting with respiratory symptoms and fever. Diagnosis is consistent with a viral process, pcr c/w para influenza. He is being treated symptomatically. I do think that it would be reasonable to start him on some Granix, as his white count is declining, and his paola might be fairly significant. He is possibly susceptible to secondary bacterial infections in this situation. I discussed this issue with the patient at length. Our service will continue to follow with you. /[id number]/MODL MTDD
[2016-11-11] MEDS ORDERED: LATANOPROST 0.005% 2.5 ML OPHT DROPS EACHEYE SCH (21:00)
[2016-11-12] MEDS: IPRATROPIUM/ALBUTEROL 3 ML DEYVIAL IH SCH ×2 (05:07→10:58)
[2016-11-12 05:57] LABS: ANION GAP 9 mEq/L (8-16); CALCIUM 8.7 mg/dL (8.5-10.4); CARBON DIOXIDE 24 mEq/l (22-31); CHLORIDE 104 mEq/L (97-110); CREATININE 0.8 mg/dL (0.7-1.3); GLOMERULAR FILTRATION RATE > 60; GLUCOSE 113 mg/dL (70-100); POTASSIUM 3.9 mEq/L (3.5-5.2); SODIUM 137 mEq/L (134-144)
[2016-11-12 08:02] VITALS: BP 122/77; PULSE 76; RESP 20; TEMP 97.9; O2SAT 88
[2016-11-12] MEDS: MULTIVITAMINS 1 EACH TAB PO SCH (08:28)
[2016-11-12] MEDS: PRESERVISION AREDS2 FORMULA EYE VIT 1 EACH PO SCH (08:28)
[2016-11-12] MEDS: FAMOTIDINE 20 MG TAB PO SCH (08:28)
[2016-11-12] MEDS: OMEGA-3 FATTY ACIDS 1,000 MG CAP PO SCH (08:28)
[2016-11-12] MEDS: predniSONE 20 MG TAB PO SCH (08:28)
[2016-11-12] MEDS: LEVOBUNOLOL 0.5% 5 ML OPHT.BTL EACHEYE SCH (08:30)
[2016-11-12] MEDS: ENOXAPARIN 40 MG/0.4 ML SYR SC SCH (08:31)
--- NOTE | 2016-11-12 09:45 | HOSPPROG ---
Hospitalist Progress Note Assessment/Plan: #Acute hypoxemic resp failure: improved. Due to parainfluenza. CTA negative for PE #Suspected underlying COPD (significant tobacco hx) exacerbation: Duonebs, steroids #Hypovolemic hyponatremia: resolved with IVFs #Lung adenocarcinoma: first chemo 11/04 with Taxol, Carboplatin. s/p lobectomy #Weakness: due to acute illness, hyponatremia, PT to evaluate #Leukopenia: filgastrim per Onc. Granix tomorrow in shot clinic #Fever: due to viral syndrome. Negative flu. No PNA. Blood culture NGTD #Deconditioning: multifactorial with hyponatremia, decreased PO. PT to evaluate #Diet: regular #DVT ppx: lovenox #Disp: DC today Subjective: feeling much better today Objective: Vital Signs Temp Pulse Resp BP Pulse Ox 36.6 C 76 20 122/77 H 88 L 11/12/16 07:57 11/12/16 07:57 11/12/16 07:57 11/12/16 07:57 11/12/16 07:57 Laboratory Results 11/11/16 04:38 11/12/16 04:51 11/11/16 11/12/16 11/13/16 05:59 05:59 05:59 Intake Total 2500 1750 Output Total 1425 800 Balance 1075 950 PT 13.7 SEC (12.0-15.0) 11/10/16 18:40 INR 1.06 (0.83-1.16) 11/10/16 18:40 - Physical Exam Constitutional: no apparent distress Eyes: PERRL Ears, Nose, Mouth, Throat: moist mucous membranes Cardiovascular: regular rate and rhythym Respiratory: no respiratory distress, reduced air movement (air movement improved), rhonchi Gastrointestinal: normoactive bowel sounds, soft, non-tender abdomen Genitourinary: no bladder fullness Skin: warm Musculoskeletal: full muscle strength Neurologic: AAOx3 Psychiatric: interacting appropriately ICD10 Worksheet Patient Problems: Problems Problem Status Onset Chest pain Acute Hip pain, bilateral Acute History of fever Acute Diarrhea Acute Pneumonia Acute
[2016-11-12 11:29] LABS: ADD DIFF? YES; ADD MORPH? NO; ATYPICAL LYMPHOCYTE FLAG 0 (0-99); FRAGMENT RBC FLAG 0 (0-99); HEMATOCRIT 40.6 % (40.0-51.0); HEMOGLOBIN 13.7 g/dL (13.7-17.5); LIPEMIA HEMOLYSIS FLAG 80 (0-99); MEAN CELL HEMOGLOBIN 30.6 pg (27.9-34.1); MEAN CELL HEMOGLOBIN CONCENTR. 33.7 g/dL (32.4-36.7); MEAN CELL VOLUME 90.6 fL (81.5-99.8); MEAN PLATELET VOLUME 10.9 fL (8.7-11.7); PLATELET CLUMPS FLAG 10 (0-99); PLATELET COUNT 143 10^3/uL (150-400); RED BLOOD CELL COUNT 4.48 10^6/uL (4.40-6.38); RED CELL DISTRIBUTION WIDTH 13.2 % (11.5-15.2)
[2016-11-12 11:34] LABS: ADD SCAN? NO; LEFT SHIFT FLG 110 (0-99)
[2016-11-12] MEDS ORDERED: FILGRASTIM-SNDZ 300 MCG/0.5 ML SYR SC SCH (12:00)
--- NOTE | 2016-11-12 12:23 | GDS ---
[f rep st] DISCHARGE SUMMARY DISCHARGE DIAGNOSES: 1. Adenocarcinoma status post lobectomy and status post first cycle of carboplatin and Taxol on 10/25/2016. 2. Parainfluenza. 3. Acute hypoxemic respiratory failure. 4. Leukopenia. 5. Hypovolemic hyponatremia. 6. Weakness. 7. Fever. HISTORY: The patient is a 71-year-old male with recently diagnosed adenocarcinoma of the lung who underwent chemotherapy with carboplatin and Taxol on 11/04/2016, presenting with fever at home to 100.8 and aches. He has had a nonproductive cough. He reports his grandchildren, whom he lives with, have had croup, and have been coughing over the last few days. He has had mild shortness of breath. No nausea, vomiting or diarrhea. HOSPITAL COURSE BY PROBLEM: 1. Acute hypoxemic respiratory failure: This is secondary to parainfluenza. The patient was treated with DuoNebs, low-dose steroids with improvement. He is no longer requiring oxygen. CTA was negative for PE. 2. Suspected underlying chronic obstructive pulmonary disease with exacerbation : The patient does not have an official diagnosis, but has a significant tobacco history. Will treat with low-dose steroid at discharge. Will discharge with albuterol inhaler as needed. 3. Hypovolemic hyponatremia: This is secondary to decreased p.o. intake. This issue resolved with IV fluids. 4. Parainfluenza: Supportive care with IV fluids and antitussives. Influenza negative. 5. Weakness: Secondary to acute illness as well as decreased p.o. intake. PT evaluated, and patient is clear for discharge. 6. Leukopenia: Appreciate oncology consultation. Patient started on Granix, was dosed yesterday and today. Will follow up clinic tomorrow for another dose 7. Fever: due to parainfluenza. No evidence pneumonia. Blood cultures were negative. DISPOSITION: Patient is stable for discharge. FOLLOWUP: 1. Dr. Victoria, as previously scheduled. 2. [facility] on 11/13/2016. /[id number]/MODL MTDD
[2016-11-12 12:25] LABS: PLATELET ESTIMATE DECREASED (ADEQ)
== END 2016-11-12 13:03 | disposition home or self-care (01) | DRG 865 ==
LOC: F1N 21:35
PROVIDERS: ADMIT Internal Medicine; ATTEND Internal Medicine
DX: B34.9 Viral infection, unspecified (principal); J44.1 Chronic obstructive pulmonary disease with (acute) exacerbation; J96.01 Acute respiratory failure with hypoxia; C34.91 Malignant neoplasm of unspecified part of right bronchus or lung; E87.1 Hypo-osmolality and hyponatremia
CPT/HCPCS: 96374; 97161-GP; G8978-GP-CI; G8979-GP-CI; J1170; J1650; J2405; Q5101-ZA; Q9967

== ENCOUNTER 2017-06-27 08:54 | Inpatient (IN) | payer OTHER ==
--- NOTE | 2017-06-27 09:49 | EDPHY ---
H & P Time Seen by Provider: 06/27/17 09:26 HPI/ROS: CHIEF COMPLAINT: Left leg weakness, difficulty walking HISTORY OF PRESENT ILLNESS: 72-year-old male with a history of lung cancer and COPD presents with left leg weakness. Onset of left leg weakness 2 weeks ago, gradually increasing since then. This morning he got out of bed and fell against the wall because of left leg weakness. He has been dragging his left leg today. He also has a 4 week history of left arm weakness and pain. The pain is in his left shoulder and occurs when he raises his arm above his head. Associated with weakness in his left upper extremity, including assistant strength. He has a history of low back pain and prior lumbar laminectomy. No recent back injury or change in usual back pain. No headache. No recent head or neck trauma. No prior history of CVA. REVIEW OF SYSTEMS: Constitutional: No fever, no chills Eyes: No visual changes ENT: No sore throat Respiratory: No cough, no shortness of breath Cardiac: No chest pain Gastrointestinal: no vomiting, no abdominal pain Genitourinary: no dysuria Musculoskeletal: No swelling Skin: No rash Neurological: No headache Psychiatric: No depression Past Medical/Surgical History: Lung cancer COPD Social History: Lives in own home with son Smoking Status: Former smoker Physical Exam: General Appearance: Alert, pleasant Eyes: Pupils equal and round, no conjunctival pallor or injection ENT, Mouth: Mucous membranes moist Neck: Normal inspection Respiratory: Lungs are clear to auscultation Cardiovascular: Regular rate and rhythm Gastrointestinal: Abdomen is soft and nontender Back: No midline tenderness Neurological: A&O, cranial nerves 2-12 intact, left lower extremity-strength 4+ /5, left upper extremity 5-/5, sensory-subjective decreased sensation to light touch of the distal extremities Skin: Warm and dry Extremities: Nontender, no pedal edema Psychiatric: Mood and affect normal Constitutional: Initial Vital Signs Temperature (C) 36.7 C 06/27/17 08:59 Heart Rate 70 06/27/17 08:59 Respiratory Rate 18 06/27/17 08:59 Blood Pressure 159/92 H 06/27/17 08:59 O2 Sat (%) 93 06/27/17 08:59 O2 Delivery Mode Room Air Allergies/Adverse Reactions: No Known Allergies Allergy (Verified 06/27/17 08:58) Home Medications: Medication Instructions Recorded C/E/Zn/Cu/OM3/DHA/EPA/LUT/ZEAX 1 each PO BID 11/10/16 [Preservision Areds 2 Softgel] Latanoprost 0.005% [Xalatan 0.005% 1 drops EACHEYE HS 11/10/16 (*)] Levobunolol 0.5% [BETAGAN 0.5% (*)] 1 drops EACHEYE DAILY 11/10/16 Multivitamins [Multivitamin (*)] 1 each PO DAILY 11/10/16 Braggs-3 Fatty Acids [Fish Oil 1000 1,000 mg PO BID 11/10/16 mg (*)] Medical Decision Making - Diagnostics EKG Interpretation: EKG interpreted by me reveals sinus rhythm, rate 58, no ST or T segment changes. Interpretation: Normal EKG Imaging Results: CT head: rt internal capsule infarct per Dr. Garcia ED Course/Re-evaluation: Clinical presentation concerning for subacute stroke. Unclear onset of sx, likely 2 weeks ago, but may have occurred during the night last night. Not a tpa candidate, given prolonged sx. Stat EKG reveals no evidence of ischemia or dysrhythmia. CT head ordered. CT scan results discussed with the patient and his son. CT findings correlate with sx. Timeline reassessed; pt has been symptomatic for 2 weeks, c/w subacute CVA. Aspirin 325 mg orally given. MRI brain ordered. The hospitalist service was consulted for admission. Pt stable throughout his ED stay. Neuro exam unchanged. Differential Diagnosis: Differential diagnosis includes though is not limited to cardiac dysrhythmia, CVA, TIA, GI bleed, sepsis, hypoglycemia. - Data Points Laboratory Results: Laboratory Results 06/27/17 09:50 06/27/17 09:50 Medications Given: Latanoprost (Xalatan 0.005%) 1 drops EACHEYE HS [facility] Stop: 12/24/17 20:59 Last Admin: 06/27/17 16:44 Dose: 1 drops Levobunolol HCl (Betagan 0.5%) 1 drops EACHEYE DAILY [facility] Stop: 12/24/17 13:44 Last Admin: 06/27/17 16:45 Dose: Not Given Multivitamins/Minerals (Preservision Areds2 Formula) 1 each PO BID [facility] Stop: 12/24/17 20:59 Last Admin: 06/27/17 20:39 Dose: 1 each [id number] Ethyl Esters (Fish Oil) 1,000 mg PO BID [facility] Stop: 12/24/17 20:59 Last Admin: 06/27/17 20:39 Dose: 1,000 mg Discontinued Medications Aspirin (Aspirin) 325 mg PO EDNOW ONE Stop: 06/27/17 10:46 Last Admin: 06/27/17 10:50 Dose: 325 mg Departure - Departure Disposition: Home, Routine, Self-Care Clinical Impression: CVA (cerebral vascular accident) Qualifiers: CVA mechanism: thrombosis Precerebral and cerebral artery: middle cerebral artery Laterality of affected vessel: right Qualified Code(s): I63.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
[2017-06-27 09:57] LABS: % IMMATURE GRANULYOCYTES 0.6 % (0.0-1.1); ABSOLUTE IMMATURE GRANULOCYTES 0.05 10^3/uL (0.00-0.10); ADD DIFF? NO; ADD MORPH? NO; ADD SCAN? NO; ATYPICAL LYMPHOCYTE FLAG 0 (0-99); FRAGMENT RBC FLAG 0 (0-99); HEMATOCRIT 46.1 % (40.0-51.0); HEMOGLOBIN 15.9 g/dL (13.7-17.5); LEFT SHIFT FLG 0 (0-99); LIPEMIA HEMOLYSIS FLAG 90 (0-99); MEAN CELL HEMOGLOBIN 31.5 pg (27.9-34.1); MEAN CELL HEMOGLOBIN CONCENTR. 34.5 g/dL (32.4-36.7); MEAN CELL VOLUME 91.3 fL (81.5-99.8); MEAN PLATELET VOLUME 10.2 fL (8.7-11.7); PLATELET CLUMPS FLAG 10 (0-99); PLATELET COUNT 199 10^3/uL (150-400); RED BLOOD CELL COUNT 5.05 10^6/uL (4.40-6.38); RED CELL DISTRIBUTION WIDTH 13.7 % (11.5-15.2)
--- NOTE | 2017-06-27 10:12 | CPEKG ---
Heart Rate: 58 RR Interval: 1034 P-R Interval: 200 QRSD Interval: 86 QT Interval: 404 QTC Interval: 397 P Dennison: 27 QRS Dennison: 9 T Wave Dennison: 56 EKG Severity - NORMAL ECG - EKG Impression: SINUS RHYTHM Electronically Signed By: Elizabeth Galdamez 27-Jun-2017 14:37:58
[2017-06-27 10:13] LABS: ANION GAP 11 mEq/L (8-16); CALCIUM 9.6 mg/dL (8.5-10.4); CARBON DIOXIDE 24 mEq/l (22-31); CHLORIDE 107 mEq/L (97-110); GLOMERULAR FILTRATION RATE > 60; GLUCOSE 94 mg/dL (70-100); POTASSIUM 4.5 mEq/L (3.5-5.2); SODIUM 142 mEq/L (134-144)
[2017-06-27] MEDS ORDERED: ASPIRIN 325 MG TAB PO ONE (10:45)
[2017-06-27] MEDS ORDERED: ONDANSETRON 4 MG/2 ML VIAL IVP PRN (13:38)
[2017-06-27] MEDS ORDERED: ONDANSETRON DISINTEGRATING 4 MG TAB PO PRN (13:38)
[2017-06-27] MEDS ORDERED: ACETAMINOPHEN 325 MG TAB PO PRN (13:38)
[2017-06-27] MEDS ORDERED: IOPAMIDOL (ISOVUE 370) 100 ML BTL IV ONE (13:41)
--- NOTE | 2017-06-27 14:42 | GHP ---
[f rep st] HISTORY AND PHYSICAL DATE OF ADMISSION: 06/27/2017 HISTORY OF PRESENT ILLNESS: The patient is a pleasant 72-year-old gentleman, with a history of lung cancer as well as glaucoma, who presents with a weak left leg. The patient has been doing well but complaining about some subcu weakness in his left leg. It has be en going on for somewhere between 2 and 4 weeks. His son has noticed that he has limped a bit. He d oes live with his son, but the patient has not been really complaining about it. It sounds like he i s somewhat reticent to see doctors. The patient awoke at 3 a.m. this morning with the need to urinate, and he stumbled. He fell into the wall, dragging his left leg. This is a new finding for him. He does not really have any left arm w eakness, although he does complain of shoulder pain in his left shoulder that is not new. He ultimat chapito sought care, arriving in the emergency department at about 9:45 today. He has had no fever, chills, cough, sputum, nausea, vomiting, diarrhea. He received chemotherapy ove r the summer for lung cancer and has been given a clean bill of health by Dr. Victoria. I have discussed the case with Dr. Hortensia Galdamez in the emergency department. REVIEW OF SYSTEMS: Complete 10-point review of systems conducted. Negative except as noted in the H PI. PAST MEDICAL HISTORY: 1. Glaucoma. 2. 40 pack-year smoking history. 3. Adenocarcinoma of the lung status post lobectomy by Dr. Gill. 4. COPD. 5. Episode of pneumonia. 6. He denies a history of hyperlipidemia, diabetes, or hypertension. FAMILY HISTORY: Notable for no lung cancer. SOCIAL HISTORY: He is from [place], but he moved here to be with his son. A former smoker. Retired . Denies heavy alcohol. ALLERGIES: No known drug allergies. HOME MEDICATIONS: PreserVision, latanoprost, levobunolol, multivitamins, and fish oil. PHYSICAL EXAMINATION: PRESENTING VITALS: Blood pressure 159/92, pulse 70, breathing 18 times a arpan te, 98% on room air. GENERAL: No acute distress. HEENT: Sclerae anicteric. Oropharynx clear. Mu cous membranes are moist. NECK: Supple. No lymphadenopathy or JVD. LUNGS: Clear to auscultation bilaterally. HEART: S1, S2 without murmurs. ABDOMEN: Soft, nontender, nondistended. LOWER EXTREM ITIES: Without edema. Calves nontender. SKIN: Without rash. NEUROLOGIC: 4/5 strength in most of the left leg, but particularly with regard to extension of the thigh and flexion of the thigh. His leg gets progressively stronger as you go inferiorly. His left arm has a bit of weakness in comparis on with the right arm, but he is also right-handed. He does not have facial droop or slurred speech. Sensation is intact bilaterally, as is cerebellar testing. I did not observe his gait. LABORATORY DATA: White count 8.8; hematocrit 46; platelets are 199,000; there are no coags. Chem 7 is normal. MRI of the brain shows acute right frontal 1 cm acute lunar infarct in the periventricula r white matter. No acute hemorrhage, hydrocephalus, mass-effect, or herniation. Moderate diffuse at rophy. Old infarct in the right basal ganglia. Multiple T2 signal abnormalities in the white matter , which is likely microvascular ischemic gliosis. Notably, there were no masses. Noncontrast head C T shows subacute infarct in the right external capsule. EKG, interpreted by me, shows sinus precious at 58 with normal axis and intervals. There are no ST or T-wave changes. His shoulder film shows dege nerative joint disease. ASSESSMENT/PLAN: A 72-year-old gentleman presents with acute cerebrovascular accident, outside of [facility] for [facility]. 1. Cerebrovascular accident. The patient has had a right frontal infarct with moderate left leg wea kness and mild left arm weakness. His symptoms began when he went to bed last night. As he woke up with them at 3 a.m. and he did not present until 9:45, well outside the window of [facility]. 2. He has no identifiable risk factors, but he likely has vascular disease on the basis of a head CT and 40 years of smoking. I will check a lipid panel, echocardiogram, hemoglobin A1c, computed tomog gordy angiography of the head and neck. Hypercoagulable workup is not indicated. 3. History of lung cancer. It is a relief to see there are no intracranial masses. 4. Left leg weakness. Physical therapy and occupational therapy. 5. Degenerative joint disease. We can hold this issue if I can get some outpatient physical therapy . 6. Prophylaxis. Pharmacologic prophylaxis indicated with [id number]-dopkxe heparin. 7. Disposition: Observation status. /[id number]/MODL
[2017-06-27] MEDS: LEVOBUNOLOL 0.5% 5 ML OPHT.BTL EACHEYE SCH ×2 (16:43→16:45)
[2017-06-27] MEDS: LATANOPROST 0.005% 2.5 ML OPHT DROPS EACHEYE SCH (16:44)
[2017-06-27] MEDS: PRESERVISION AREDS2 FORMULA EYE VIT 1 EACH PO SCH (20:39)
[2017-06-27] MEDS: OMEGA-3 FATTY ACIDS 1,000 MG CAP PO SCH (20:39)
[2017-06-28 05:14] LABS: % IMMATURE GRANULYOCYTES 0.5 % (0.0-1.1); ABSOLUTE IMMATURE GRANULOCYTES 0.04 10^3/uL (0.00-0.10); ADD DIFF? NO; ADD MORPH? NO; ADD SCAN? NO; ATYPICAL LYMPHOCYTE FLAG 10 (0-99); FRAGMENT RBC FLAG 0 (0-99); HEMATOCRIT 45.4 % (40.0-51.0); HEMOGLOBIN 15.5 g/dL (13.7-17.5); LEFT SHIFT FLG 0 (0-99); LIPEMIA HEMOLYSIS FLAG 90 (0-99); MEAN CELL HEMOGLOBIN 31.4 pg (27.9-34.1); MEAN CELL HEMOGLOBIN CONCENTR. 34.1 g/dL (32.4-36.7); MEAN CELL VOLUME 92.1 fL (81.5-99.8); MEAN PLATELET VOLUME 10.1 fL (8.7-11.7); PLATELET CLUMPS FLAG 10 (0-99); PLATELET COUNT 171 10^3/uL (150-400); RED BLOOD CELL COUNT 4.93 10^6/uL (4.40-6.38); RED CELL DISTRIBUTION WIDTH 13.5 % (11.5-15.2)
[2017-06-28 05:27] LABS: ANION GAP 10 mEq/L (8-16); CALCIUM 9.1 mg/dL (8.5-10.4); CARBON DIOXIDE 25 mEq/l (22-31); CHLORIDE 106 mEq/L (97-110); CHOLESTEROL 161 mg/dL (140-220); CHOLESTEROL/HDL RATIO 4.35 RATIO (1.00-4.97); GLOMERULAR FILTRATION RATE > 60; GLUCOSE 91 mg/dL (70-100); HIGH DENSITY LIPOPROTEIN 37 mg/dL (40-65); LDL/HDL RATIO 2.73 RATIO (1.00-3.64); LOW DENSITY LIPOPROTEIN 101 mg/dL (80-100); NON-HIGH DENSITY LIPOPROTEIN 124 mg/dL (90-129); POTASSIUM 4.5 mEq/L (3.5-5.2); SODIUM 141 mEq/L (134-144); TRIGLYCERIDE 118 mg/dL (40-150); VERY LOW DENSITY LIPOPROTEINS 23 mg/dL (8-25)
--- NOTE | 2017-06-28 09:55 | NEUROPROG ---
Assessment: [id number] CC: Stroke HPI: Pt presented to [facility] ER on 06/[facility]/17 with a complaint of left leg weakness that started 1 weeks ago. Brain MRI showed a right frontal lacunar stroke so patient admitted for stroke evaluation. He has chronic left shoulder pain for months. Pt outside window for TPA and CTA head/neck shows no significant vascular findings (did show mod to severe spinal stenosis). I initially saw the patient on 06/28/17. He had left leg weakness and mild left arm weakness. PMHx: glaucoma, adenocarcinoma of lung status post-lobectomy, COPD, PNA Home Meds: preservision, latanoprost, levobunolol SHx: tobacco use FHx: no lung cancer ROS: Pt denied acute fever, total vision loss, active severe chest pain, respiratory failure, total body severe rash, total bowel/bladder incontinence, psychosis, active seizures, or active bleeding O: VS reviewed General: Alert Eyes: Fundoscopic exam not able to visualize optic disks CV: Heart RRR, no murmur, no carotid bruit Lungs: Clear to auscultation bilaterally, no rhonci or rales Neuro: - Mental: . Oriented x person/place/date . concentration appears normal . speech fluency/comprehension normal . memory appears normal . fund of knowledge appear intact - Cranial Nerves: . II: PERRL, VFFTC . III/IV/: EOMI, no nystagmus, normal smooth pursuits, no Ptosis . V: facial sensation intact to LT . VII: face symmetric to eye closure and smile . VIII: hearing intact to conversation . IX/X: uvula raises symmetrically . XI: SCM 5/5 B/L strength . XII: tongue protrudes midline w/nl strength - Motor: . Tone: normal tone in all 4 extrem . Strength: normal except for left leg weaknes (4 /5) and left arm weakness (4+ /5) - Reflexes: B/L bic/BR/patella 2/4 - Sensory: all 4 extrem intact to light touch - Coord: [id number] wnl, MERVAT wnl, [id number] wnl - Gait: deferred - NIH SS 1 (left leg drift) Labs: 06/28/17- CBC wnl, Chem wnl, LDL 101H, H1AC pending Rads: 06/27/17- Brain MRI w/o con: acute right frontal subcortical lacunar stroke, mod atrophy, severe CMVD, old right BG CVA (I personally visualized the images on ) 06/27/17- CTA head/neck: no acute vascular findings, mod to severe SC narrowing Assessment: 1. Right Frontal Subcortical lacunar stroke 06/27/17: on MRI stroke size/ location most consistent with small vessel disease and pt has known stroke risk factors (tobacco use, advanced age) so that is the likely mechanism. CTA head/ neck shows no vascular findings. 2. Mod to Severe Spinal Canal narrowing incidentally noted on CTA 06/28/17: At outpatient f/u if pt has symptoms from the spinal stenosis will consider dedicated C-spine MRI vs neurosurgery consult Plan: - Start ASA 325 mg and change to ASA 81 mg qd at discharge (Pt not on daily aspirin prior to admission) - ensure 24 hours of cardiac monitoring - TTE - H1AC goal < 7.0, lab pending - Blood pressure goal < 220/140 x 24 hours then < 140/90 correction - LDL < 70 (101), recommend beginning statin - PT/OT/Speech therapy - Tobacco cessation recommended - F/U in neurology clinic 1-4 weeks after discharge Objective: Vital Signs Temp Pulse Resp BP Pulse Ox 36.9 C 64 14 137/76 H 91 L 06/28/17 08:00 06/28/17 08:00 06/28/17 08:00 06/28/17 08:00 06/28/17 08:00 Laboratory Results 06/28/17 04:30 06/28/17 04:30 06/27/17 06/28/17 06/29/17 05:59 05:59 05:59 Intake Total 825 Balance 825 Allergies/Adverse Reactions: No Known Allergies Allergy (Verified 06/27/17 08:58)
[2017-06-28] MEDS: ENOXAPARIN 40 MG/0.4 ML SYR SC SCH (10:03)
[2017-06-28] MEDS: ASPIRIN 325 MG TAB PO SCH (10:03)
[2017-06-28] MEDS: MULTIVITAMINS 1 EACH TAB PO SCH (10:04)
[2017-06-28] MEDS: PRESERVISION AREDS2 FORMULA EYE VIT 1 EACH PO SCH ×2 (10:04→19:28)
[2017-06-28] MEDS: OMEGA-3 FATTY ACIDS 1,000 MG CAP PO SCH ×2 (10:04→19:28)
[2017-06-28] MEDS: LEVOBUNOLOL 0.5% 5 ML OPHT.BTL EACHEYE SCH (10:05)
--- NOTE | 2017-06-28 10:32 | ASMTCMCOM ---
CM Note CM Note Notes: Patiented admitted for CVA; he presented outside the window for tPA so is being medically managed and evaluated by PT/OT/NUCLEAR CONTROL OPERATOR. Per PT, patient is a great candidate for inpatient rehab. A consult has been ordered. OT/NUCLEAR CONTROL OPERATOR evals pending. Patient lives with his son. CM will follow for discharge planning. Date Signed: 06/28/2017 10:32 AM Electronically Signed By:Keya Winters RN
[2017-06-28 11:34] LABS: HEMOGLOBIN A1C 5.6 % (4.0-6.0)
--- NOTE | 2017-06-28 11:58 | ECHO ---
[email or web address] [address] [address] Main: [phone] Fax: Transthoracic Echocardiogram Name: ROSIE OCAMPO MR#: [id number] Study Date: 06/27/2017 Study Time: 02:57 PM Date of : 1945 Age: 72 year(s) Height: 175.3 cm (69 in.) Weight: 88.45 kg (195 lb.) BSA: 2.04 m2 Gender: Male Examination: Echo Indication: Ischemic stroke w/o TPA, history lung CA/recent RLL lobectomy Image Quality: Fair Contrast: Requested by: Coleman Novoa BP: 136 mmHg/84 mmHg Heart Rate: Rhythm: Indication: Ischemic stroke w/o TPA, history lung CA/recent RLL lobectomy Procedure Staff Industrial Robotics Mechanic: Radha Taveras Reading Physician: Mejia Rodriguez Requesting Provider: Conclusions: Normal size left ventricle. Normal global systolic LV function. The ejection fraction is estimated to be 65-70 %. The mitral valve is normal in appearance and function. Aortic valve is not well visualized. No aortic valve stenosis is present. There is no aortic valve regurgitation. No obvious source of emboli.. Consider ELLEN if clinically indicated This is a technically limited study Measurements: Chambers Valvular Assessment AV/MV Valvular Assessment TV/PV Normal Normal Normal Name Value Range Name Value Range Name Value Range Ao Nevin (MM): 3.8 cm (2.2 cm-3.7 AV meanP mmHg ( - ) cm) MV E Vmax: 0.74 m/s ( - ) LVDd (2D): 4.0 cm (4.2 cm-5.9 MV A Vmax: 0.78 m/s ( - ) cm) MV E/A: 0.95 ( - ) LVEF (MOD4): 72 % (>=55 %) EF Range: 65-70 % Continued Measurements: Chambers Valvular Assessment AV/MV Name Value Name Value LADs: 3.5 cm MV E' Septal: 0.07 m/s LADs Lon.2 cm MV E/E' Septal: 10.90 Patient: ROSIE OCAMPO Study Date: 06/27/2017 Page 1 of 2 02:57 PM LA Area: 18.5 cm2 MV E/E' Lateral: 7.70 Findings: Left Ventricle: Normal size left ventricle. Normal global systolic LV function. The ejection fraction is estimated to be 65-70 %. No regional wall motion abnormality. Right Ventricle: Normal size right ventricle. Left Atrium: The left atrium is normal in size. Right Atrium: The right atrium is normal in size. Mitral Valve: The mitral valve is normal in appearance and function. Aortic Valve: Aortic valve is not well visualized. No aortic valve stenosis is present. There is no aortic valve regurgitation. Tricuspid Valve: The tricuspid valve is normal in appearance and function. Trivial to mild tricuspid valve regurgitation. Pulmonic Valve: Pulmonary valve not well visualized. Aorta: The aorta is normal. Pericardium: No pericardial effusion. Exam Comments: No obvious source of emboli.. (No Signature Object) Patient: ROSIE OCAMPO Study Date: 06/27/2017 Page 2 of 2 02:57 PM [id number]
--- NOTE | 2017-06-28 14:00 | HOSPPROG ---
Hospitalist Progress Note Assessment/Plan: 72 yo M w acute CVA CVA: R MCA distribution w L arm and leg weakness outside lytic window no AF on monitor, echo normal hyperlipidemia: ldl > 100 start statin shoulder pain: PT suspect rotator cuff tear outpt MRI if PT ineffective proph: lmwh dispo: inpt inpt rehab consult Subjective: case d/w dr benitez. tele: no AF (interp by me) Objective: Vital Signs Temp Pulse Resp BP Pulse Ox 36.1 C 60 14 120/72 93 06/28/17 11:54 06/28/17 11:54 06/28/17 11:54 06/28/17 11:54 06/28/17 11:54 Laboratory Results 06/28/17 04:30 06/28/17 04:30 06/27/17 06/28/17 06/29/17 05:59 05:59 05:59 Intake Total 825 Balance 825 - Physical Exam Constitutional: no apparent distress, appears nourished Eyes: PERRL, anicteric sclera Ears, Nose, Mouth, Throat: moist mucous membranes, hearing normal Cardiovascular: regular rate and rhythym, no murmur, rub, or gallop Respiratory: no respiratory distress, no rales or rhonchi Gastrointestinal: normoactive bowel sounds, soft, non-tender abdomen Genitourinary: no bladder fullness, No lanier in urethra Skin: warm, normal color Musculoskeletal: other (L leg weakness) Neurologic: other (no L facial droop) Psychiatric: interacting appropriately Lymph, Heme, Immunologic: no cervical LAD ICD10 Worksheet Patient Problems: Problems Problem Status Onset CVA (cerebral vascular accident) Acute Chest pain Acute Diarrhea Acute Hip pain, bilateral Acute History of fever Acute Pneumonia Acute
--- NOTE | 2017-06-28 16:02 | PDMN ---
Medical Necessity Medical necessity: change to IP; los>2mn for ongoing eval and rx r/t acute R frontal infarct CVA with weakness of L arm and leg, presenting outside window for lytics; requires tele, PT/OT/ST and IP rehab eval; comorbid COPD, hx lung CA and PNA; per order and progress note 06/28/17
[2017-06-28] MEDS: LATANOPROST 0.005% 2.5 ML OPHT DROPS EACHEYE SCH (19:30)
[2017-06-29 04:52] VITALS: PULSE 67
[2017-06-29 07:38] VITALS: BP 135/70; RESP 12; TEMP 98.3; O2SAT 92
[2017-06-29] MEDS: ENOXAPARIN 40 MG/0.4 ML SYR SC SCH (07:58)
[2017-06-29] MEDS: ASPIRIN 325 MG TAB PO SCH (08:01)
[2017-06-29] MEDS: OMEGA-3 FATTY ACIDS 1,000 MG CAP PO SCH (08:01)
[2017-06-29] MEDS: MULTIVITAMINS 1 EACH TAB PO SCH (08:02)
[2017-06-29] MEDS: PRESERVISION AREDS2 FORMULA EYE VIT 1 EACH PO SCH (08:02)
[2017-06-29] MEDS: LEVOBUNOLOL 0.5% 5 ML OPHT.BTL EACHEYE SCH (08:05)
[2017-06-29] MEDS ORDERED: FLU VACC QS 2017-18 (3YR+)/PF 0.5 ML SYR (FLUARIX QUAD) IM ONE (09:00)
[2017-06-29] MEDS ORDERED: ROSUVASTATIN CALCIUM 10 MG TAB PO SCH (09:00)
--- NOTE | 2017-06-29 10:07 | NEUROPROG ---
Assessment: [id number] CC: Stroke Narrative Summary: Pt presented to [facility] ER on 06/27/17 with a complaint of left leg weakness that started 1 weeks ago. Brain MRI showed a right frontal lacunar stroke so patient admitted for stroke evaluation. He has chronic left shoulder pain for months. Pt outside window for TPA and CTA head/neck shows no significant vascular findings (did show mod to severe spinal stenosis). I initially saw the patient on 06/28/17. He had left leg weakness and mild left arm weakness. HPI: Inpt f/u 06/29/17. TTE unremarkable. Pt doing well. Likely to inpt rehab soon. No new complaints. PMHx: glaucoma, adenocarcinoma of lung status post-lobectomy, COPD, PNA, right subcortical frontal lacunar stroke causing left arm/leg weakness on 06/27/17 Home Meds: preservision, latanoprost, levobunolol SHx: tobacco use FHx: no lung cancer ROS: Pt denied acute fever, total vision loss, active severe chest pain, respiratory failure, total body severe rash, total bowel/bladder incontinence, psychosis, active seizures, or active bleeding Labs: 06/28/17- CBC wnl, Chem wnl, LDL 101H, H1AC 5.6 Rads: 06/27/17- Brain MRI w/o con: acute right frontal subcortical lacunar stroke, mod atrophy, severe CMVD, old right BG CVA 06/27/17- CTA head/neck: no acute vascular findings, mod to severe SC narrowing 06/27/17- TTE: no cardioembolic source seen 06/27/17- 24 hour telemetry: no afib seen Assessment: 1. Right Frontal Subcortical lacunar stroke 06/27/17: on MRI stroke size/ location most consistent with small vessel disease and pt has known stroke risk factors (tobacco use, advanced age) so that is the likely mechanism. CTA head/ neck shows no vascular findings and TTE/24 Hour Telemetry were unremarkable. 2. Mod to Severe Spinal Canal narrowing incidentally noted on CTA 06/28/17: At outpatient f/u if pt has symptoms from the spinal stenosis will consider dedicated C-spine MRI vs neurosurgery consult 3. Left Rotator Cuff Injury: Defer management to hospitalist Plan: - Start ASA 325 mg and change to ASA 81 mg qd at discharge (Pt not on daily aspirin prior to admission) - H1AC goal < 7.0 (5.6) - Blood pressure goal < 140/90 - LDL < 70 (101), pt started on rosuvastatin 5 mg qd - PT/OT/Speech therapy with likely need for inpt rehab at discharge - Tobacco cessation recommended - F/U in neurology clinic 1-4 weeks after discharge No further neurologic w/u needed. Neurology will sign off but please call for any changes in neurologic status or any need for neurology help. 35 min spent with patient. Majority of time spent counseling on prognosis and treatment plan for his stroke. Objective: Vital Signs Temp Pulse Resp BP Pulse Ox 36.8 C 67 12 135/70 H 92 06/29/17 07:36 06/29/17 07:36 06/29/17 07:36 06/29/17 07:36 06/29/17 07:36 06/28/17 06/29/17 06/30/17 05:59 05:59 05:59 Intake Total 450 Balance 450 Allergies/Adverse Reactions: No Known Allergies Allergy (Verified 06/27/17 08:58)
--- NOTE | 2017-06-29 10:25 | HOSPPROG ---
Hospitalist Progress Note Assessment/Plan: 72 yo M w acute CVA CVA: R MCA distribution w L arm and leg weakness outside lytic window no AF on monitor, echo normal hyperlipidemia: ldl > 100 start statin shoulder pain: PT suspect rotator cuff tear outpt MRI if PT ineffective proph: lmwh dispo: to inpatient rehab today > 30 minutes Subjective: tele: no AF (interp by me). has bed at [facility] rehab Objective: Vital Signs Temp Pulse Resp BP Pulse Ox 36.8 C 67 12 135/70 H 92 06/29/17 07:36 06/29/17 07:36 06/29/17 07:36 06/29/17 07:36 06/29/17 07:36 06/28/17 06/29/17 06/30/17 05:59 05:59 05:59 Intake Total 450 Balance 450 - Physical Exam Constitutional: no apparent distress, appears nourished Eyes: PERRL, EOMI Ears, Nose, Mouth, Throat: moist mucous membranes, hearing normal Cardiovascular: regular rate and rhythym, no murmur, rub, or gallop Respiratory: no respiratory distress, no rales or rhonchi Gastrointestinal: normoactive bowel sounds, soft, non-tender abdomen Genitourinary: no bladder fullness, No lanier in urethra Skin: warm, normal color Musculoskeletal: full muscle strength Neurologic: AAOx3, other (L leg weakness) Psychiatric: interacting appropriately ICD10 Worksheet Patient Problems: Problems Problem Status Onset CVA (cerebral vascular accident) Acute Chest pain Acute Diarrhea Acute Hip pain, bilateral Acute History of fever Acute Pneumonia Acute
--- NOTE | 2017-06-29 10:41 | PDIAF ---
- Diagnosis Diagnosis: acute R MCA CVA Code Status: Full Code - Medication Management Discharge Medications: Medications to Continue on Transfer C/E/Zn/Cu/OM3/DHA/EPA/LUT/ZEAX [Preservision Areds 2 Softgel] 1 each PO BID [Last Taken 06/27/17] Latanoprost 0.005% [Xalatan 0.005% (*)] 1 drops EACHEYE HS 11/10/16 [Last Taken 06/26/17] Levobunolol 0.5% [BETAGAN 0.5% (*)] 1 drops EACHEYE DAILY 11/10/16 [Last Taken 06/27/17] Multivitamins [Multivitamin (*)] 1 each PO DAILY 11/10/16 [Last Taken 06/27/17] [place]-3 Fatty Acids [Fish Oil 1000 mg (*)] 1,000 mg PO BID 11/10/16 [Last Taken 06/27/17] Aspirin [Aspirin 325 mg (*)] 325 mg PO DAILY tab 06/29/17 [Last Taken Unknown] Enoxaparin [Lovenox 40 MG (*)] 40 mg SC DAILY syr 06/29/17 [Last Taken Unknown] Rosuvastatin Calcium [Crestor] 5 mg PO DAILY tab 06/29/17 [Last Taken Unknown] Discharge Medications: Refer to the Discharge Home Medication list for PRN reason. - Orders Services needed: Registered Nurse, Certified Supervisor Sunglasses, Physical Therapy, Occupational Therapy, Speech Language Pathologist Isolation Type: None - Follow Up Care Current Providers and Referrals: AFRICA,ROBBIE [Other] - As per Instructions
--- NOTE | 2017-06-29 13:18 | GDS ---
[f rep st] DISCHARGE SUMMARY DISCHARGE DIAGNOSES: 1. Right frontal stroke in the MCA distribution, 1 cm acute lacunar infarct. 2. History of lung cancer, status post surgery and chemotherapy, currently in remission. 3. Glaucoma. 4. Hyperlipidemia. HOSPITAL COURSE: Please see admission history and physical by Dr. Coleman Novoa. The patient prese nted with left leg weakness. He had left leg weakness it sounds like on and off for about a week or 2, but then he awoke at 3 in the morning with weakness so bad in his left leg that he could barely wa lk to the bathroom. He was normal when he went to bed. [facility], outside of the window for lytics. CT was unremarkable. Brain MRI showed the stroke, as mentioned . I refer the reader to the report for further details. The patient had a normal echocardiogram. H e had an LDL of 100. He does not have diabetes. He does not have hypertension. He does not smoke c igarettes. He does not have atrial fibrillation despite 48 hours of monitoring. He is discharged to inpatient rehab. His new medications are aspirin 325 and rosuvastatin 5. /[id number]/MODL
--- NOTE | 2017-06-29 13:57 | ASDISCHSUM ---
Discharge Information Plan Status:Inpatient Rehab Medically Cleared to Leave:06/28/2017 Discharge Date:06/29/2017 12:37 PM D/C Disposition: ADT D/C Disposition:Home, Routine, Self-Care Projected Discharge Date:06/29/2017 12:00 AM Transportation at D/C: Discharge Delay Reason: Follow-Up Date:06/29/2017 12:00 AM Discharge Slot: Final Diagnosis: Placement Information Referral Type:Acute Care Referral ID:[id number] Provider Name:[facility] Address 1:[address] [place] [address] Phone Number: Address 2:[place], [place] Fax Number: City:[place] Selection Factors: State:[place] Patient Contact Information Contact Name:OLGA Relationship:Son Address: City: [facility] Phone: State/[place] Code: Email: Financial Information Financial Class: Primary Plan Desc:MEDICARE INPATIENT Primary Plan Number:[id number] Secondary Plan Desc:[employer] Secondary Plan Number:[id number] Assessment Information [facility] CM Progress Note CM Note CM Note Notes: Patiented admitted for CVA; he presented outside the window for tPA so is being medically managed and evaluated by PT/OT/TEAM FOREMAN. Per PT, patient is a great candidate for inpatient rehab. A consult has been ordered. OT/TEAM FOREMAN evals pending. Patient lives with his son. CM will follow for discharge planning. Date Signed: 06/28/2017 10:32 AM Electronically Signed By:Keya Winters RN Case Management Discharge Plan Note Case Management Discharge Discharge Order Complete? Answers: Yes Patient to Obtain Answers: via Family Medications Transportation Arranged Answers: Family/Friends Transport will Pick (Date 06/29/2017 01:00 PM & Time) AMBERALA Complete Answers: No Case Management Transport Answers: No Form Complete Agency/Facility Transfer Answers: Yes Report Printed & Faxed to Receiving Agency Family Notified Answers: Yes Discharge Comments Notes: Pt is being discharged to [facility] inpatient rehab. Son will be transporting pt. CM provided [employer] w/ phone number to give report. CM available for changes. Plan: Inpatient rehab at [facility] Date Signed: 06/29/2017 10:34 AM Electronically Signed By:GUILLE Story Intervention Information Intervention Type:*JEWELL-Signed Date of Service:06/27/2017 03:54 PM Patient Type:Observation Staff Member:Mary Wood Hours: Discipline: Severity: Comment:
== END 2017-06-29 12:37 | disposition home or self-care (01) | DRG 66 ==
LOC: F3N 14:43 → OBSVTOIN 06-28 15:51 → F2W 06-28 16:09
PROVIDERS: ADMIT Internal Medicine; ATTEND Internal Medicine
DX: I63.511 Cerebral infarction due to unspecified occlusion or stenosis of right middle cerebral artery (principal); M25.512 Pain in left shoulder; J44.9 Chronic obstructive pulmonary disease, unspecified; H40.9 Unspecified glaucoma; E78.5 Hyperlipidemia, unspecified; Z85.118 Personal history of other malignant neoplasm of bronchus and lung; Z87.891 Personal history of nicotine dependence; Z87.01 Personal history of pneumonia (recurrent); Z23 Encounter for immunization
CPT/HCPCS: 92523-GN; 97110-GP; 97116-GP; 97162-GP; 97166-GO; G0008; G0378; G8978-GP-CK; G8979-GP-CI; G8987-GO-CJ; G8988-GO-CI; G9165-GN-CH; G9166-GN-CH; G9167-GN-CH; J1650; Q9967

== ENCOUNTER 2017-06-29 11:32 | Inpatient (IN) | payer OTHER ==
--- NOTE | 2017-06-29 16:23 | GHP ---
[f rep st] HISTORY AND PHYSICAL POST ADMISSION PHYSICIAN EVALUATION AND REHABILITATION TREATMENT PLAN DATE OF ADMISSION: 06/29/2017 DATE OF EVALUATION: 06/29/2017. TIME OF EVALUATION: 1520. REFERRING FACILITY: [facility]. IMPAIRMENT GROUP: 1.1. DATE OF ONSET: 06/27/2017. REFERRING PHYSICIAN: Dr. Novoa. CONSULTING PHYSICIANS: He was seen in consultation by neurologist, Dr. Freire. REHABILITATION DIAGNOSIS: Debility with left leg weakness, status post cerebrovascular accident. ETIOLOGIC DIAGNOSIS: Left body involvement (right brain). HISTORY OF PRESENT ILLNESS: This patient came to [facility] on 06/27/2017, with acute left lower extremity weakness. He got out of bed in the morning and found that he could not support his weight on his left leg. He was, however, able to get to the bathroom by supporting himself on the douglass in his home, and subsequently was able to climb a set of steps, as he lives in a finished basement, to find his son and get to the hospital. He had been having symptoms intermittently, but not this severe, for several days, so he was not within the window for thrombolysis. Brain MRI showed a right frontal lacunar infarct as well as an old infarct in the right basal ganglia. Head and neck CT angiogram was negative for atherosclerotic narrowing. Echocardiogram was normal and with no obvious source of emboli. He had telemetry for greater than 24 hours with no atrial fibrillation. The stroke was considered to be due to small-vessel disease. He was begun on aspirin and atorvastatin. He was working with therapies and stable for inpatient rehabilitation. STUDIES AND LABS: During his stay: Hematology revealed a normal CBC. Serum chemistry revealed normal renal function and electrolytes. Hemoglobin A1c was normal at 5.6. Lipid panel showed a total cholesterol of 161, an LDL of 101, and an HDL of 37. Imaging was as described above. PRECAUTIONS: He is a fall risk. ACTIVE COMORBIDITIES: He has the tier 3 comorbidity of hemiparesis; otherwise, he has no active tier 1, tier 2, or tier 3 comorbidities. PAST MEDICAL HISTORY: 1. Lung cancer. 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 3. Glaucoma. 4. Macular degeneration. 5. Appendicitis. 6. Ligament tear in the right elbow. 7. Chronic left shoulder pain. 8. COPD. 9. Pneumonia. SURGICAL HISTORY: 1. Lung lobectomy in August of this year. 2. Appendectomy. 3. Right elbow surgery. 4. Biopsy of neck mass. PRE-HOSPITAL MEDICATIONS: 1. PreserVision multivitamin. 2. Latanoprost. 3. Levobunolol. 4. Multivitamin. 5. Fish oil. ADMISSION MEDICATIONS: 1. Aspirin 325 mg p.o. daily. 2. PreserVision multivitamin. 3. Latanoprost 0.005% 1 drop each eye at bedtime. 4. Levobunolol 0.5% 1 drop each eye daily. 5. Multivitamin 1 p.o. daily. 6. [place]-3 fatty acids 1000 mg p.o. b.i.d. 7. Rosuvastatin 5 mg p.o. daily. FAMILY HISTORY: Noncontributory. PSYCHOSOCIAL HISTORY: He lives in a finished basement in a home with his son, [id number], and twin 2-1/2-year-old grandchildren. He is a former smoker, but quit in 2010. 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 He has moved from [place] to be near to his family here. REVIEW OF SYSTEMS: He is aware of balance difficulties, but he has been able to ambulate considerable distances using a walker. He denies headache, vision changes, difficulty swallowing, or loss of sensation. He is not aware if he snores or not, as he sleeps alone. He reports that he is legally blind due to macular degeneration and glaucoma; however, he feels he is safe to ride an electric bicycle around town. He has some chronic pain in the left shoulder, which he attributes to a rotator cuff tear. He has a good appetite. He denies nausea, vomiting, constipation, or diarrhea. He has no cough or dyspnea. He has no chest pain or palpitations. Other than the left shoulder, he has no joint pain and no joint swelling. He denies rash or skin breakdown, and otherwise a 10-point review of systems is negative. PHYSICAL EXAM: VITAL SIGNS: Blood pressure is 112/74, heart rate is 65, respiratory rate is 14, oxygen saturation is 94% on room air. Temperature is 36.6 degrees centigrade. His weight is 88.6 kg for a body mass index of 28.8. GENERAL: This is a well-nourished, well-developed man, sitting in a chair in street clothes, cooperative and in no acute distress. HEENT: Extraocular movements are intact. Pupils are equal, round, and reactive to light. Mucous membranes are moist. Dentition is in good condition. There is no posterior oropharyngeal mucus, and there are no oropharyngeal mucosal lesions. NECK: Supple with no masses. HEART: There is a regular rate and rhythm with no murmurs, rubs, or gallops. Heart sounds are somewhat distant. LUNGS: Clear to auscultation bilaterally. ABDOMEN: Soft, nontender, nondistended with normoactive bowel sounds and no hepatosplenomegaly. EXTREMITIES: There is no cyanosis, clubbing, or edema. Radial pulses are 2+ bilaterally. Pedal pulses are diminished but present. NEUROLOGIC: He is alert and oriented x3. Cranial nerves 2-12 are grossly intact. He has 4+/5 strength in the left lower extremity, and otherwise there is no weakness. Sensation is intact to light touch. Deep tendon reflexes are 2+ bilaterally at the biceps, patellar, and Achilles tendons. He is able to arise from chair independently, and ambulates with a front-wheeled walker, slightly wide base with support, short steps, and moving slowly. IMPRESSION: This patient is a 72-year-old man who suffered a lacunar infarct to the right frontal lobe and had a finding on imaging of an old right basal ganglia stroke. His current stroke is considered to be small vessel atherosclerosis, as his echocardiogram was normal and there were no significant findings on neck or cerebral angiography. There was no atrial fibrillation on monitoring while in the hospital. He has been treated with atorvastatin for an LDL greater than 100, and with aspirin. He is not hypertensive. He has had considerable improvement during his hospitalization, but remains with a mobility impairment which also affects activities of daily living. He is appropriate for inpatient rehabilitation, where he will benefit from physical therapy and occupational therapy to optimize mobility and activities of daily living, with the goal of returning to independent living at home and ability to climb a set of steps to and from his bedroom. He will have nursing care for fall risk, skin integrity, bowel and bladder, medication administration , and medication education. He will have the care of a physician regarding risk for neurologic deterioration and management of comorbidities with medications, including glaucoma and dyslipidemia. His goal is to complete a rehabilitation stay and then return home with his family and supportive services as needed. For a safe discharge it is anticipated that he will achieve independence with grooming, dressing and bed mobility, modified independence for transfers and ambulation with the least restrictive device on level and unlevel surfaces. He may require assistance for shopping, meal preparation, and household management. He will have therapy with physical therapy and occupational therapy for 90 minutes per day per discipline 5-7 days per week. His expected duration of stay is 7-10 days. It is expected that upon discharge he will continue to benefit from home health services including occupational therapy and physical therapy and a stroke support group. PLAN: 1. Impaired mobility and ADLs, status post right frontal lacunar infarction with history of right basal ganglia infarction: PT and OT to optimize mobility and activities of daily living. 2. Secondary prevention of cerebrovascular disease: Continue atorvastatin and aspirin. Monitor blood pressure. 3. Glaucoma: Continue his eye drops. 4. History of lung cancer, status post lobectomy: Per report, this is in remission. His cardiorespiratory status will be monitored. 5. Left shoulder pain: Unclear whether this is due to a rotator cuff injury, as the patient suspects. He also was noted to have multilevel degenerative change in the C-spine, most prominent from C5-C7, with moderate to severe spinal canal narrowing on his CT angiogram, and he had a normal left shoulder x- ray. X-ray was done because of history of falling against the wall on his left shoulder when he had onset of symptoms of the stroke. He will have physical and occupational therapy regarding range of motion and full use of the left upper extremity. 6. Prophylaxis: He has ambulated greater than 150 feet. He does not have hemiparesis, and though he is elderly and has had a stroke, he is not at high risk for deep venous thrombosis. He will have SCDs at night, but no pharmacologic anticoagulation. /[id number]/MODL MTDD
[2017-06-29] MEDS: OMEGA-3 FATTY ACIDS 1,000 MG CAP PO SCH (20:16)
[2017-06-29] MEDS: PRESERVISION AREDS2 FORMULA EYE VIT 1 EACH PO SCH (20:16)
[2017-06-29] MEDS: LATANOPROST 0.005% 2.5 ML OPHT DROPS EACHEYE SCH (20:18)
[2017-06-29] MEDS ORDERED: LATANOPROST 0.005% 2.5 ML OPHT DROPS EACHEYE SCH (21:00)
[2017-06-30] MEDS: ASPIRIN 325 MG TAB PO SCH (08:24)
[2017-06-30] MEDS: PRESERVISION AREDS2 FORMULA EYE VIT 1 EACH PO SCH ×2 (08:24→18:56)
[2017-06-30] MEDS: OMEGA-3 FATTY ACIDS 1,000 MG CAP PO SCH ×2 (08:25→19:25)
[2017-06-30] MEDS: ROSUVASTATIN CALCIUM 10 MG TAB PO SCH (08:25)
[2017-06-30] MEDS: LEVOBUNOLOL 0.5% 5 ML OPHT.BTL EACHEYE SCH (08:53)
[2017-06-30] MEDS ORDERED: LEVOBUNOLOL 0.5% 5 ML OPHT.BTL EACHEYE SCH (09:00)
[2017-06-30] MEDS ORDERED: MULTIVITAMINS 1 EACH TAB PO SCH (09:00)
--- NOTE | 2017-06-30 13:12 | PDOREHIP ---
Admission [facility] - Admission - 3 Day Assessment Period Admission Date/Day 1: 06/29/17 Day 2: 06/30/17 Day 3: 07/01/17 - Active Diagnoses Comorbidities and Co-existing Conditions at Admission: 80303. None of the Above - Skin Conditions Unhealed Pressure Ulcer (1 or more/Stage 1 or >)-Admission: 0. No
--- NOTE | 2017-06-30 13:14 | SOAPPROG ---
SOAP Progress Note Assessment/Plan: Assessment: # Impaired mobility and ADLs, status post right frontal lacunar infarction with history of right basal ganglia infarction: PT and OT to optimize mobility and activities of daily living. # Secondary prevention of cerebrovascular disease: Continue atorvastatin and aspirin. Monitor blood pressure. # Glaucoma: Continue his eye drops. # History of lung cancer, status post lobectomy: Per report, this is in remission. His cardiorespiratory status will be monitored. # Left shoulder pain: Unclear whether this is due to a rotator cuff injury, as the patient suspects. He also was noted to have multilevel degenerative change in the C-spine, most prominent from C5-C7, with moderate to severe spinal canal narrowing on his CT angiogram, and he had a normal left shoulder x-ray. X-ray was done because of history of falling against the wall on his left shoulder when he had onset of symptoms of the stroke. He will have physical and occupational therapy regarding range of motion and full use of the left upper extremity. # Prophylaxis: He has ambulated greater than 150 feet. He does not have hemiparesis, and though he is elderly and has had a stroke, he is not at high risk for deep venous thrombosis. He will have SCDs at night, but no pharmacologic anticoagulation. 06/30/17 13:13 Subjective: No complaints. Had impaired sleep for the 1st per the night as he felt cold and he thought the mattress was losing a. Subsequently he slept better with an extra blanket. He denies pain, cough, dyspnea, fevers, chills. Objective: Vital Signs Temp Pulse Resp BP Pulse Ox 36.7 C 76 18 110/68 92 06/30/17 05:01 06/30/17 05:01 06/30/17 05:01 06/30/17 05:01 06/30/17 05:01 06/29/17 06/30/17 07/01/17 05:59 05:59 05:59 Intake Total 300 420 Output Total 600 Balance -300 420 Physical Exam - Physical Exam General Appearance: WD/WN, alert, no apparent distress Respiratory: normal breath sounds, No crackles, No rhonchi, No wheezing Cardiac/Chest: regular rate, rhythm, No edema, No JVD Skin: normal color, warm/dry Neuro/Psych: alert, normal mood/affect, oriented x 3 ICD10 Worksheet Patient Problems: Problems Problem Status Onset CVA (cerebral vascular accident) Acute Chest pain Acute Diarrhea Acute Hip pain, bilateral Acute History of fever Acute Pneumonia Acute
[2017-06-30] MEDS: LATANOPROST 0.005% 2.5 ML OPHT DROPS EACHEYE SCH (19:26)
[2017-07-01] MEDS: LEVOBUNOLOL 0.5% 5 ML OPHT.BTL EACHEYE SCH ×2 (07:42→19:20)
[2017-07-01] MEDS: MULTIVITAMIN PO SCH (07:42)
[2017-07-01] MEDS: OMEGA-3 FATTY ACIDS 1,000 MG CAP PO SCH ×2 (07:43→19:20)
[2017-07-01] MEDS: PRESERVISION AREDS2 FORMULA EYE VIT 1 EACH PO SCH ×2 (07:43→18:08)
[2017-07-01] MEDS: ROSUVASTATIN CALCIUM 10 MG TAB PO SCH (07:43)
[2017-07-01] MEDS: ASPIRIN 325 MG TAB PO SCH (07:44)
--- NOTE | 2017-07-01 12:48 | SOAPPROG ---
SOAP Progress Note Assessment/Plan: Assessment: # Impaired mobility and ADLs, status post right frontal lacunar infarction with history of right basal ganglia infarction: PT and OT to optimize mobility and activities of daily living. # Secondary prevention of cerebrovascular disease: Continue atorvastatin and aspirin. Monitor blood pressure. # Glaucoma: Continue his eye drops. # History of lung cancer, status post lobectomy: Per report, this is in remission. His cardiorespiratory status will be monitored. # Left shoulder pain: Unclear whether this is due to a rotator cuff injury, as the patient suspects. He also was noted to have multilevel degenerative change in the C-spine, most prominent from C5-C7, with moderate to severe spinal canal narrowing on his CT angiogram, and he had a normal left shoulder x-ray. X-ray was done because of history of falling against the wall on his left shoulder when he had onset of symptoms of the stroke. He will have physical and occupational therapy regarding range of motion and full use of the left upper extremity. # Prophylaxis: He has ambulated greater than 150 feet. He does not have hemiparesis, and though he is elderly and has had a stroke, he is not at high risk for deep venous thrombosis. He will have SCDs at night, but no pharmacologic anticoagulation. Plan: 07/01/17 12:48 Subjective: Continue left shoulder pain but seems to be better with the PT tape. No other new complaints Objective: Vital Signs Temp Pulse Resp BP Pulse Ox 37.1 C 68 16 127/71 H 94 06/30/17 18:55 06/30/17 18:55 06/30/17 18:55 06/30/17 18:55 06/30/17 18:55 06/30/17 07/01/17 07/02/17 05:59 05:59 05:59 Intake Total 300 1360 118 Output Total 600 Balance -300 1360 118 Physical Exam - Physical Exam General Appearance: WD/WN, alert, no apparent distress Respiratory: lungs clear, normal breath sounds Cardiac/Chest: regular rate, rhythm, No edema Neuro/Psych: alert, normal mood/affect, oriented x 3 ICD10 Worksheet Patient Problems: Problems Problem Status Onset CVA (cerebral vascular accident) Acute Chest pain Acute Diarrhea Acute Hip pain, bilateral Acute History of fever Acute Pneumonia Acute
[2017-07-01] MEDS: LATANOPROST 0.005% 2.5 ML OPHT DROPS EACHEYE SCH (19:24)
[2017-07-02] MEDS: LEVOBUNOLOL 0.5% 5 ML OPHT.BTL EACHEYE SCH (07:49)
[2017-07-02] MEDS: ROSUVASTATIN CALCIUM 10 MG TAB PO SCH (07:50)
[2017-07-02] MEDS: OMEGA-3 FATTY ACIDS 1,000 MG CAP PO SCH ×2 (07:50→19:39)
[2017-07-02] MEDS: MULTIVITAMIN PO SCH (07:50)
[2017-07-02] MEDS: PRESERVISION AREDS2 FORMULA EYE VIT 1 EACH PO SCH ×2 (07:50→17:04)
[2017-07-02] MEDS: ASPIRIN 325 MG TAB PO SCH (07:50)
[2017-07-02] MEDS: LATANOPROST 0.005% 2.5 ML OPHT DROPS EACHEYE SCH (19:39)
--- NOTE | 2017-07-02 21:37 | SOAPPROG ---
SOAP Progress Note Assessment/Plan: Assessment: # Impaired mobility and ADLs, status post right frontal lacunar infarction with history of right basal ganglia infarction: PT and OT to optimize mobility and activities of daily living. # Secondary prevention of cerebrovascular disease: Continue atorvastatin and aspirin. Monitor blood pressure. # Glaucoma: Continue his eye drops. # History of lung cancer, status post lobectomy: Per report, this is in remission. His cardiorespiratory status will be monitored. # Left shoulder pain: Unclear whether this is due to a rotator cuff injury, as the patient suspects. He also was noted to have multilevel degenerative change in the C-spine, most prominent from C5-C7, with moderate to severe spinal canal narrowing on his CT angiogram, and he had a normal left shoulder x-ray. X-ray was done because of history of falling against the wall on his left shoulder when he had onset of symptoms of the stroke. He will have physical and occupational therapy regarding range of motion and full use of the left upper extremity. # Prophylaxis: He has ambulated greater than 150 feet. He does not have hemiparesis, and though he is elderly and has had a stroke, he is not at high risk for deep venous thrombosis. He will have SCDs at night, but no pharmacologic anticoagulation. Plan: 07/01/17 12:48 Subjective: feels good. no new complaints Objective: Vital Signs Temp Pulse Resp BP Pulse Ox 36.4 C 70 16 130/95 H 93 07/02/17 18:00 07/02/17 18:00 07/02/17 18:00 07/02/17 18:00 07/02/17 18:00 07/01/17 07/02/17 07/03/17 05:59 05:59 05:59 Intake Total 1360 1438 1700 Balance 1360 1438 1700 Physical Exam - Physical Exam General Appearance: WD/WN, alert, no apparent distress Respiratory: No respiratory distress Cardiac/Chest: regular rate, rhythm Neuro/Psych: alert, normal mood/affect, oriented x 3 ICD10 Worksheet Patient Problems: Problems Problem Status Onset CVA (cerebral vascular accident) Acute Chest pain Acute Diarrhea Acute Hip pain, bilateral Acute History of fever Acute Pneumonia Acute
[2017-07-03] MEDS: LEVOBUNOLOL 0.5% 5 ML OPHT.BTL EACHEYE SCH (08:01)
[2017-07-03] MEDS: PRESERVISION AREDS2 FORMULA EYE VIT 1 EACH PO SCH ×3 (08:07→19:35)
[2017-07-03] MEDS: ASPIRIN 325 MG TAB PO SCH (08:07)
[2017-07-03] MEDS: MULTIVITAMIN PO SCH (08:07)
[2017-07-03] MEDS: ROSUVASTATIN CALCIUM 10 MG TAB PO SCH (08:08)
[2017-07-03] MEDS: OMEGA-3 FATTY ACIDS 1,000 MG CAP PO SCH ×2 (08:08→19:35)
--- NOTE | 2017-07-03 13:02 | SOAPPROG ---
SOAP Progress Note Assessment/Plan: Assessment: # Impaired mobility and ADLs, status post right frontal lacunar infarction with history of right basal ganglia infarction: * Initial functional independence measure of 93 on 07/03/2015. Noted to have decreased proprioception and coordination of the left lower extremity. Primarily working on improved endurance. OT notes visual acuity of 20/80 on right and very impaired on left. * Continue PT and OT to optimize mobility and activities of daily living. # Secondary prevention of cerebrovascular disease: Continue atorvastatin and aspirin. Monitor blood pressure. # Glaucoma: Continue his eye drops. # History of lung cancer, status post lobectomy: Per report, this is in remission. His cardiorespiratory status will be monitored. He reports follow up with his oncologist scheduled for 07/07/2017. # Left shoulder pain: Possible rotator cuff injury, as the patient suspects. Not functionally limiting. Benefitting from taping per OT. # Prophylaxis: He has ambulated greater than 150 feet. He does not have hemiparesis, and though he is elderly and has had a stroke, he is not at high risk for deep venous thrombosis. He will have SCDs at night, but no pharmacologic anticoagulation. Attended staffing, 15 min. Discussed with case management, dietitian, nursing, PT, OT. Discharge date set for 07/07/2017. Will have a home OT safety evaluation and will have home PT. PCP is Dr. Benitez Almonte at the [facility] 07/03/17 12:55 Subjective: No complaints. Reports he slept very well last night. Not in pain, no cough or dyspnea. Objective: Vital Signs Temp Pulse Resp BP Pulse Ox 36.8 C 78 18 119/63 94 07/03/17 06:49 07/03/17 06:49 07/03/17 06:49 07/03/17 06:49 07/03/17 06:49 07/02/17 07/03/17 07/04/17 05:59 05:59 05:59 Intake Total 1438 1999 Balance 1438 1999 - Time Spent With Patient Time Spent With Patient: Greater than 35 min floor time today, including more than 50% of time in coordination of care during staffing meeting, and counseling patient. Physical Exam - Physical Exam General Appearance: WD/WN, alert, no apparent distress Respiratory: normal breath sounds, No crackles, No rhonchi, No wheezing Cardiac/Chest: regular rate, rhythm, No edema, No diastolic murmur, No systolic murmur Skin: normal color, warm/dry Neuro/Psych: alert, normal mood/affect, oriented x 3, abnormal gait (With front wheeled walker. Using increased flexion at left hip to improve left foot clearance and avoid foot drag.) ICD10 Worksheet Patient Problems: Problems Problem Status Onset CVA (cerebral vascular accident) Acute Chest pain Acute Diarrhea Acute Hip pain, bilateral Acute History of fever Acute Pneumonia Acute
[2017-07-03] MEDS: LATANOPROST 0.005% 2.5 ML OPHT DROPS EACHEYE SCH (19:36)
[2017-07-04] MEDS: PRESERVISION AREDS2 FORMULA EYE VIT 1 EACH PO SCH ×2 (07:28→17:23)
[2017-07-04] MEDS: ROSUVASTATIN CALCIUM 10 MG TAB PO SCH (07:29)
[2017-07-04] MEDS: MULTIVITAMIN PO SCH (07:29)
[2017-07-04] MEDS: ASPIRIN 325 MG TAB PO SCH (07:29)
[2017-07-04] MEDS: LEVOBUNOLOL 0.5% 5 ML OPHT.BTL EACHEYE SCH (07:31)
[2017-07-04] MEDS: OMEGA-3 FATTY ACIDS 1,000 MG CAP PO SCH ×2 (07:32→19:23)
--- NOTE | 2017-07-04 09:48 | SOAPPROG ---
SOAP Progress Note Assessment/Plan: 72-year-old male status post a right frontal lacunar infarct on 06/27/2017 thought due to atherosclerosis with impairments in mobility and self-care, complicated by left shoulder pain Today's update: Doing well in therapies, preparing for discharge home day after tomorrow. Answered questions and reviewed his function. Overall doing well. A total of 25 min was spent on the floor in the care of the patient, the majority of which was spent in the counseling and coordination of care regarding preparation for discharge. Shoulder plain films reviewed from acute hospitalization, no evidence of OA or fractures. Most consistent with adhesive capsulitis, with contributing factors that may include rotator cuff pathology or impingement. # Impaired mobility and ADLs, status post right frontal lacunar infarction with history of right basal ganglia infarction: * Initial functional independence measure of 93 on 07/03/2015. Noted to have decreased proprioception and coordination of the left lower extremity. Primarily working on improved endurance. OT notes visual acuity of 20/80 on right and very impaired on left. * Continue PT and OT to optimize mobility and activities of daily living. # Secondary prevention of cerebrovascular disease: Continue atorvastatin and aspirin. Monitor blood pressure. # Glaucoma: Continue his eye drops. # History of lung cancer, status post lobectomy: Per report, this is in remission. His cardiorespiratory status will be monitored. He reports follow up with his oncologist scheduled for 07/07/2017. # Left shoulder pain: Shoulder plain films reviewed from acute hospitalization , no evidence of OA or fractures. Most consistent with adhesive capsulitis, with contributing factors that may include rotator cuff pathology or impingement. Benefitting from taping per OT. # Prophylaxis: He has ambulated greater than 150 feet. He does not have hemiparesis, and though he is elderly and has had a stroke, he is not at high risk for deep venous thrombosis. He will have SCDs at night, but no pharmacologic anticoagulation. Attended staffing, 15 min. Discussed with case management, dietitian, nursing, PT, OT. Discharge date set for 07/07/2017. Will have a home OT safety evaluation and will have home PT. PCP is Dr. Benitez Almonte at the [facility] 07/04/17 09:21 Subjective: Chief complaint left shoulder pain No acute events overnight. Patient is participating well in therapies and making good progress with anticipating discharge home in 2 days. No new shortness of breath or chest pain, no new numbness, tingling, or weakness. He has had left shoulder pain for several months, he does not recall an acute events recently taking it off. Denies any redness or swelling. He thinks it may have a component of osteoarthritis or rotator cuff injury. He has been working with therapies on stretching and range of motion. Objective: Vital Signs Temp Pulse Resp BP Pulse Ox 36.3 C 67 18 135/72 H 93 07/03/17 19:59 07/03/17 19:59 07/03/17 19:59 07/03/17 19:59 07/03/17 19:59 07/03/17 07/04/17 07/05/17 05:59 05:59 05:59 Intake Total 1999 1150 Balance 1999 1150 Physical Exam - Physical Exam General Appearance: WD/WN, alert, no apparent distress EENT: No scleral icterus (R), No scleral icterus (L) Respiratory: lungs clear, normal breath sounds, No respiratory distress, No accessory muscle use, No rales, No rhonchi, No wheezing Cardiac/Chest: normal peripheral pulses, regular rate, rhythm, No edema Skin: normal color, warm/dry, No cyanosis, No diaphoresis Extremities: other (Palpation about the shoulder was nontender, he did have painful limited range of motion in all planes. That included a positive Mckeon.), No inflammation, No swelling Neuro/Psych: alert, normal mood/affect ICD10 Worksheet Patient Problems: Problems Problem Status Onset CVA (cerebral vascular accident) Acute Chest pain Acute Diarrhea Acute Hip pain, bilateral Acute History of fever Acute Pneumonia Acute
[2017-07-04] MEDS: LATANOPROST 0.005% 2.5 ML OPHT DROPS EACHEYE SCH (19:23)
[2017-07-05] MEDS ORDERED: ACETAMINOPHEN 500 MG TAB PO PRN (07:36)
[2017-07-05] MEDS: PRESERVISION AREDS2 FORMULA EYE VIT 1 EACH PO SCH ×2 (07:38→17:13)
[2017-07-05] MEDS: OMEGA-3 FATTY ACIDS 1,000 MG CAP PO SCH ×2 (07:38→19:22)
[2017-07-05] MEDS: MULTIVITAMIN PO SCH (07:38)
[2017-07-05] MEDS: ASPIRIN 325 MG TAB PO SCH (07:38)
[2017-07-05] MEDS: ROSUVASTATIN CALCIUM 10 MG TAB PO SCH (07:38)
[2017-07-05] MEDS: LEVOBUNOLOL 0.5% 5 ML OPHT.BTL EACHEYE SCH (07:39)
--- NOTE | 2017-07-05 09:35 | SOAPPROG ---
SOAP Progress Note Assessment/Plan: 72-year-old male status post a right frontal lacunar infarct on 06/27/2017 thought due to atherosclerosis with impairments in mobility and self-care, complicated by left shoulder pain Today's update: Doing well overall but slept poorly. Looking forward to going home. Goal to complete discharge planning today. Add Tylenol for intermittent low back pain. A total of 35 min was spent on the floor in the care of the patient the majority of which was spent in the counseling and coordination of care regarding discharge planning. # Impaired mobility and ADLs, status post right frontal lacunar infarction with history of right basal ganglia infarction: * Initial functional independence measure of 93 on 07/03/2015. Noted to have decreased proprioception and coordination of the left lower extremity. Primarily working on improved endurance. OT notes visual acuity of 20/80 on right and very impaired on left. * Continue PT and OT to optimize mobility and activities of daily living. # Secondary prevention of cerebrovascular disease: Continue atorvastatin and aspirin. Monitor blood pressure. # Glaucoma: Continue his eye drops. # History of lung cancer, status post lobectomy: Per report, this is in remission. His cardiorespiratory status will be monitored. He reports follow up with his oncologist scheduled for 07/07/2017. # Left shoulder pain: Shoulder plain films reviewed from acute hospitalization , no evidence of OA or fractures. Most consistent with adhesive capsulitis, with contributing factors that may include rotator cuff pathology or impingement. Benefitting from taping per OT. # Prophylaxis: He has ambulated greater than 150 feet. He does not have hemiparesis, and though he is elderly and has had a stroke, he is not at high risk for deep venous thrombosis. He will have SCDs at night, but no pharmacologic anticoagulation. Discharge date set for 07/07/2017. Will have a home OT safety evaluation and will have home PT. PCP is Dr. Benitez Almonte at the [facility] 07/04/17 09:21 07/05/17 09:31 Subjective: Chief complaint: Insomnia No acute events overnight. Denies any shortness of breath or chest pain, no new numbness, tingling, or weakness. Notes that he had some difficulty sleeping last night but feels that he is just looking forward to going home. He also had some mild back pain and asked the nurse for some medication, Tylenol was added. Planning to discharge home with home health PT and OT with goal to either. Therapies eventually or transition to outpatient this was communicated to him. Working with social work on discharge planning Objective: Vital Signs Temp Pulse Resp BP Pulse Ox 36.6 C 71 16 106/70 93 07/05/17 06:49 07/05/17 06:49 07/05/17 06:49 07/05/17 06:49 07/05/17 06:49 07/04/17 07/05/17 07/06/17 05:59 05:59 05:59 Intake Total 1150 1236 Balance 1150 1236 Physical Exam - Physical Exam General Appearance: WD/WN, alert, no apparent distress Respiratory: lungs clear, normal breath sounds, No respiratory distress, No accessory muscle use Cardiac/Chest: normal peripheral pulses, regular rate, rhythm Skin: normal color, warm/dry, No cyanosis Extremities: No pedal edema, No swelling Neuro/Psych: alert, normal mood/affect, other (Mild left-sided weakness, 4/5 and ankle dorsiflexion on the left compared to the right) ICD10 Worksheet Patient Problems: Problems Problem Status Onset CVA (cerebral vascular accident) Acute Chest pain Acute Diarrhea Acute Hip pain, bilateral Acute History of fever Acute Pneumonia Acute
--- NOTE | 2017-07-05 09:38 | PDOREHIP ---
Admission [facility] - Admission - 3 Day Assessment Period Admission Date/Day 1: 06/29/17 Day 2: 06/30/17 Day 3: 07/01/17 Discharge [facility] - Discharge - 3 Day Assessment Period 2 Days Prior to Anticipated Discharge Date: 07/04/17 1 Day Prior to Anticipated Discharge Date: 07/05/17 Anticipated Discharge Date: 07/06/17 - Discharge Skin Conditions Unhealed Pressure Ulcer (1 or more/Stage 1 or >)-Discharge: 0. No
--- NOTE | 2017-07-05 10:16 | PDDCSUM ---
Discharge Summary Discharge Summary: Name: Johny Lagunas Admission date: 06/29/2017 Discharge date: 07/06/2017 anticipated Discharging physician: Jason Elias MD Admitting diagnosis: 1.1, stroke with left body involvement, right brain Discharge diagnosis: Same Comorbid diagnoses: Hemiparesis, glaucoma, history of lung cancer status post lobectomy, shoulder pain on the left consistent with adhesive capsulitis Consultations: physical therapy, occupational therapy, speech language pathology , social work, dietary Procedures: None Reason for admission: Please see the history and physical by Dr. Roosevelt Harrison dated 06/29/2017 for full details, but briefly the patient was admitted to [facility] on 06/27/2017 with acute left lower extremity weakness and was found to have a right frontal lacunar infarct on brain MRI as well as an old infarct of the right basal ganglia. There was no obvious source of emboli and was thought to be due to atherosclerosis. He was started on secondary prevention, stabilized and found to have impairments in mobility, self-care, and admitted to inpatient rehabilitation for further management Rehabilitation course: Overall rehab course was good he made good progress. He was medically stable, left shoulder pain seems most consistent with adhesive capsulitis which is best treated with gentle range of motion and strengthening. X-rays in acute care hospitalization did not show evidence of arthritis or fractures. On discharge, he was functioning at a independent or modified independent level for cognition, he was requiring some cuing for some ADLs, and was modified independence in mobility with a front wheel walker/4 wheel walker. Discharge plan: Discharged home with home health PT and OT from [facility] Medications at discharge: Crestor 5 mg p.o. daily Halsey 3 fatty acids 1000 mg p.o. twice daily Multivitamin 1 each daily Supplements Aspirin 325 mg p.o. daily Latanoprost 1 drop each eye at bedtime, 0.005% Levobunolol 0.5% 1 drop each eye daily Pending studies: None Issues to be addressed at follow-up: Patient will need follow up with primary care physician and Neurology for prevention of future strokes and ongoing care
[2017-07-05] MEDS: LATANOPROST 0.005% 2.5 ML OPHT DROPS EACHEYE SCH (19:24)
[2017-07-06] MEDS: ROSUVASTATIN CALCIUM 10 MG TAB PO SCH (08:12)
[2017-07-06] MEDS: MULTIVITAMIN PO SCH (08:12)
[2017-07-06] MEDS: PRESERVISION AREDS2 FORMULA EYE VIT 1 EACH PO SCH (08:12)
[2017-07-06] MEDS: ASPIRIN 325 MG TAB PO SCH (08:13)
[2017-07-06] MEDS: LEVOBUNOLOL 0.5% 5 ML OPHT.BTL EACHEYE SCH (08:13)
[2017-07-06] MEDS: OMEGA-3 FATTY ACIDS 1,000 MG CAP PO SCH (08:13)
[2017-07-06 08:19] VITALS: BP 94/64; PULSE 73; RESP 16; O2SAT 91
[2017-07-06 08:43] VITALS: TEMP 97.7
--- NOTE | 2017-07-06 08:56 | SOAPPROG ---
SOAP Progress Note Assessment/Plan: 72-year-old male status post a right frontal lacunar infarct on 06/27/2017 thought due to atherosclerosis with impairments in mobility and self-care, complicated by left shoulder pain Today's update: Do well, coordinated discharge planning. Answered questions about blood pressure management and medication refills. He had slightly low blood pressure but denies any orthostasis. Counseled him on factors influencing blood pressure # Impaired mobility and ADLs, status post right frontal lacunar infarction with history of right basal ganglia infarction: * Initial functional independence measure of 93 on 07/03/2015. Noted to have decreased proprioception and coordination of the left lower extremity. Primarily working on improved endurance. OT notes visual acuity of 20/80 on right and very impaired on left. * Continue PT and OT to optimize mobility and activities of daily living. # Secondary prevention of cerebrovascular disease: Continue atorvastatin and aspirin. Monitor blood pressure. # Glaucoma: Continue his eye drops. # History of lung cancer, status post lobectomy: Per report, this is in remission. His cardiorespiratory status will be monitored. He reports follow up with his oncologist scheduled for 07/07/2017. # Left shoulder pain: Shoulder plain films reviewed from acute hospitalization , no evidence of OA or fractures. Most consistent with adhesive capsulitis, with contributing factors that may include rotator cuff pathology or impingement. Benefitting from taping per OT. # Prophylaxis: He has ambulated greater than 150 feet. He does not have hemiparesis, and though he is elderly and has had a stroke, he is not at high risk for deep venous thrombosis. He will have SCDs at night, but no pharmacologic anticoagulation. Discharge date set for today. Will have a home OT safety evaluation and will have home PT. PCP is Dr. Benitez Almonte at the [facility] 07/04/17 09:21 07/05/17 09:31 07/06/17 08:53 Subjective: Chief complaint: Neurological stability and blood pressure No acute events overnight. Patient endorsed no lightheadedness with a slightly low blood pressure today. No new numbness tingling or weakness, no new shortness of breath or chest pain. He is looking forward to discharging home. It questions about medication management and hypertension which were answered in conversation today. Overall doing well, discharge planned for later today Objective: Vital Signs Temp Pulse Resp BP Pulse Ox 36.5 C 73 16 94/64 L 91 L 12/14/17 08:00 07/06/17 08:00 07/06/17 08:00 07/06/17 08:00 07/06/17 08:00 07/05/17 07/06/17 07/07/17 05:59 05:59 05:59 Intake Total 1236 300 360 Balance 1236 300 360 Physical Exam - Physical Exam General Appearance: WD/WN, alert, no apparent distress EENT: No scleral icterus (R), No scleral icterus (L) Respiratory: No respiratory distress, No accessory muscle use Cardiac/Chest: normal peripheral pulses, regular rate, rhythm, No edema Skin: normal color, warm/dry, No cyanosis Extremities: non-tender, No pedal edema, No swelling Neuro/Psych: alert, normal mood/affect, other (Strength 4/5 in the left-sided knee extensor and hip flexor, 3/5 in the ankle dorsiflexor. 5/5 in these muscle groups on the right.) ICD10 Worksheet Patient Problems: Problems Problem Status Onset CVA (cerebral vascular accident) Acute Chest pain Acute Diarrhea Acute Hip pain, bilateral Acute History of fever Acute Pneumonia Acute
== END 2017-07-06 13:35 | disposition home health service (06) | DRG 57 ==
LOC: BREH 13:04
PROVIDERS: ADMIT Internal Medicine; ATTEND Physical Medicine & Rehabilitation
PROC: F0636ZZ Communicative/Cognitive Integration Skills Treatment of Neurological System - Whole Body (ICD-10-PCS; principal; 2017-06-29)
PROC: F07M3ZZ Motor Function Treatment of Musculoskeletal System - Whole Body (ICD-10-PCS; principal; 2017-06-29)
PROC: F08Z7ZZ Vocational Activities and Functional Community or Work Reintegration Skills Treatment (ICD-10-PCS; principal; 2017-06-29)
DX: I69.344 Monoplegia of lower limb following cerebral infarction affecting left non-dominant side (principal); M75.02 Adhesive capsulitis of left shoulder; H40.9 Unspecified glaucoma; H35.30 Unspecified macular degeneration; J44.9 Chronic obstructive pulmonary disease, unspecified; Z79.899 Other long term (current) drug therapy; Z86.73 Personal history of transient ischemic attack (TIA), and cerebral infarction without residual deficits; Z79.82 Long term (current) use of aspirin; Z87.891 Personal history of nicotine dependence; Z85.118 Personal history of other malignant neoplasm of bronchus and lung; Z90.2 Acquired absence of lung [part of]
CPT/HCPCS: 97110-GO; 97110-GP; 97112-GO; 97112-GP; 97116-GP; 97140-GO; 97161-GP; 97166-GO; 97530-GO; 97530-GP; 97532-GO; 97535-GO